=== PATIENT | female | born 1960 | race Caucasian/White ===

== ENCOUNTER 2018-07-09 09:19 | Outpatient (CLI) | payer MEDICARE, SELFPAY ==
[2018-07-09 09:56] LABS: HCT 44.1 % (36.0-46.0); HGB 14.1 g/dL (12.0-15.5); Mean Corpuscular Hemoglobin 30.8 pg (27.0-33.0); Mean Corpuscular Volume 96.3 fL (80-95); Mean Platelet Volume 10.4 fL (8.0-11.0); Platelet Count 209 x1000/uL (130-400); RBC 4.58 m/cumm (4.00-5.20); RBC Distribution Width 13.8 % (11.7-14.6)
[2018-07-09 10:15] LABS: Bilirubin Negative (Negative); Blood Negative (Negative); Clarity Clear; Glucose Negative (Negative); Ketones Negative (Negative); Leukocyte Esterase Negative (Negative); Nitrite Negative (Negative); Specific Gravity 1.015 (1.005-1.025); Urobilinogen 0.2 EU/dL (Up TO 0.2); pH 5.5 (5-8)
[2018-07-09 10:28] LABS: PROTEIN < 6.0 mg/dL
[2018-07-09 10:30] LABS: COMMENT (LAB VIEW ONLY) 52.21 mg/dL
[2018-07-09 10:58] LABS: ALT 24 U/L (12-78); AST 15 U/L (15-37); Albumin 3.5 g/dL (3.4-5.0); Alkaline Phosphatase 69 U/L (46-116); BUN 28 mg/dL (7-18); Bilirubin, Total 0.4 mg/dL (0.2-1.0); CREATININE 1.39 mg/dL (0.55-1.02); Calcium 8.9 mg/dL (8.5-10.1); Chloride 103 mmol/L (98-107); Estimated GFR 39.22 (mL/min/1.73m2); Glucose 96 mg/dL (70-100); Magnesium 1.6 mg/dL (1.8-2.4); PHOSPHORUS 2.9 mg/dL (2.6-4.7); Potassium 3.6 mmol/L (3.5-5.1); Sodium 142 mmol/L (136-145); Uric Acid 5.2 mg/dL (2.6-6.0)
[2018-07-09 11:14] LABS: Cholesterol 202 mg/dL (50-200)
[2018-07-10 13:42] LABS: Tacrolimus 12.2 ng/ml
== END 2018-07-09 09:39 ==
PROVIDERS: PCP Family Medicine; Visit Provider Internal Medicine Nephrology
DX: Z94.0 Kidney transplant status (principal); Z79.899 Other long term (current) drug therapy
CPT/HCPCS: 36415; 80053; 85027; 80197; 81003; 82465; 82565; 83735; 84100; 84156; 84550

== ENCOUNTER 2018-07-20 08:42 | Outpatient (CLI) | payer MEDICARE, SELFPAY ==
[2018-07-21 12:16] LABS: Tacrolimus 5.9 ng/ml
== END 2018-07-20 09:02 ==
PROVIDERS: PCP Family Medicine; Visit Provider Internal Medicine Nephrology
DX: Z94.0 Kidney transplant status (principal); Z79.899 Other long term (current) drug therapy
CPT/HCPCS: 36415; 80053; 85027; 80197; 81003; 82465; 82565; 83735; 84100; 84156; 84550

== ENCOUNTER 2018-10-01 08:39 | Outpatient (CLI) | payer MEDICARE, SELFPAY ==
[2018-10-01 09:10] LABS: HCT 40.9 % (36.0-46.0); HGB 13.3 g/dL (12.0-15.5); Mean Corp. HGB Concentration 32.5 g/dL (32.0-36.0); Mean Corpuscular Hemoglobin 30.4 pg (27.0-33.0); Mean Corpuscular Volume 93.6 fL (80-95); Mean Platelet Volume 10.2 fL (8.0-11.0); Platelet Count 192 x1000/uL (130-400); RBC 4.37 m/cumm (4.00-5.20); RBC Distribution Width 13.5 % (11.7-14.6); White Blood Cell Count 6.02 k/cumm (4.4-10.8)
[2018-10-01 09:11] LABS: Bilirubin Negative (Negative); Blood Negative (Negative); Clarity Clear; Glucose Negative (Negative); Ketones Negative (Negative); Leukocyte Esterase Trace (Negative); Nitrite Negative (Negative); Urobilinogen 0.2 EU/dL (Up TO 0.2); pH 5.5 (5-8)
[2018-10-01 09:42] LABS: Bacteria Few HPF (Negative); Crystals Negative HPF (Negative); Epithelial Cells Rare HPF (Negative); Other Cells Rare Renal (Negative); RBC 0-2 (0-2)
[2018-10-01 09:43] LABS: C & S Indicated? Yes; Casts Negative LPF (Negative); Mucus Negative (Negative)
[2018-10-01 09:56] LABS: COMMENT (LAB VIEW ONLY) 42.07 mg/dL
[2018-10-01 09:57] LABS: PROTEIN < 6.0 mg/dL
[2018-10-01 10:16] LABS: ALT 28 U/L (12-78); AST 19 U/L (15-37); Albumin 3.4 g/dL (3.4-5.0); Alkaline Phosphatase 77 U/L (46-116); Anion Gap 7.5 mmol/L (3-11); BUN 33 mg/dL (7-18); Bilirubin, Total 0.3 mg/dL (0.2-1.0); CO2 27.5 mmol/L (21.0-32.0); CREATININE 1.48 mg/dL (0.55-1.02); Calcium 9.5 mg/dL (8.5-10.1); Chloride 106 mmol/L (98-107); Estimated GFR 36.35 (mL/min/1.73m2); Glucose 85 mg/dL (70-100); Magnesium 1.6 mg/dL (1.8-2.4); PHOSPHORUS 4.1 mg/dL (2.6-4.7); Potassium 4.2 mmol/L (3.5-5.1); Sodium 141 mmol/L (136-145); Total Protein 5.8 g/dL (6.4-8.2); Uric Acid 5.9 mg/dL (2.6-6.0)
[2018-10-01 10:43] LABS: Cholesterol 164 mg/dL (50-200)
[2018-10-02 13:47] LABS: Tacrolimus 8.2 ng/ml
== END 2018-10-01 08:59 ==
PROVIDERS: PCP Family Medicine; Visit Provider Internal Medicine Nephrology
DX: Z94.0 Kidney transplant status (principal); Z79.899 Other long term (current) drug therapy
CPT/HCPCS: 36415; 80053; 85027; 80197; 81003; 81015; 82465; 82565; 83735; 84100; 84156; 84550; 87086

== ENCOUNTER 2019-01-09 07:48 | Outpatient (CLI) | payer MEDICARE, SELFPAY ==
[2019-01-09 08:17] LABS: Bilirubin Negative (Negative); Blood Negative (Negative); Clarity Clear; Glucose Negative (Negative); Ketones Negative (Negative); Leukocyte Esterase Small (Negative); Nitrite Negative (Negative); Urobilinogen 0.2 EU/dL (Up TO 0.2); pH 5.5 (5-8)
[2019-01-09 08:19] LABS: HCT 42.1 % (36.0-46.0); HGB 13.5 g/dL (12.0-15.5); Mean Corp. HGB Concentration 32.1 g/dL (32.0-36.0); Mean Corpuscular Hemoglobin 30.2 pg (27.0-33.0); Mean Corpuscular Volume 94.2 fL (80-95); Mean Platelet Volume 10.3 fL (8.0-11.0); Platelet Count 209 x1000/uL (130-400); RBC 4.47 m/cumm (4.00-5.20); RBC Distribution Width 13.7 % (11.7-14.6); White Blood Cell Count 6.17 k/cumm (4.4-10.8)
[2019-01-09 08:35] LABS: Epithelial Cells Few HPF (Negative); RBC 0-2 (0-2)
[2019-01-09 08:36] LABS: Bacteria Rare HPF (Negative); C & S Indicated? Yes; Casts Negative LPF (Negative); Crystals Negative HPF (Negative); Mucus Trace (Negative); Other Cells Few Renal (Negative)
[2019-01-09 09:29] LABS: PROTEIN 6.9 mg/dL
[2019-01-09 09:39] LABS: COMMENT (LAB VIEW ONLY) 87.74 mg/dL; Cholesterol 191 mg/dL (50-200); Prot/Crea Ur Ratio 0.07
[2019-01-09 09:40] LABS: ALT 27 U/L (12-78); AST 13 U/L (15-37); Albumin 3.4 g/dL (3.4-5.0); Alkaline Phosphatase 81 U/L (46-116); Anion Gap 10.6 mmol/L (3-11); BUN 35 mg/dL (7-18); Bilirubin, Total 0.4 mg/dL (0.2-1.0); CO2 27.4 mmol/L (21.0-32.0); CREATININE 1.74 mg/dL (0.55-1.02); Calcium 8.9 mg/dL (8.5-10.1); Chloride 104 mmol/L (98-107); Estimated GFR 30.16 (mL/min/1.73m2); Glucose 85 mg/dL (70-100); Magnesium 1.7 mg/dL (1.8-2.4); PHOSPHORUS 3.7 mg/dL (2.6-4.7); Potassium 3.9 mmol/L (3.5-5.1); Sodium 142 mmol/L (136-145); Total Protein 5.7 g/dL (6.4-8.2); Uric Acid 6.1 mg/dL (2.6-6.0)
[2019-01-10 12:49] LABS: Tacrolimus 7.8 ng/ml
== END 2019-01-09 08:08 ==
PROVIDERS: PCP Family Medicine; Visit Provider Internal Medicine Nephrology
DX: Z79.899 Other long term (current) drug therapy (principal); Z94.0 Kidney transplant status
CPT/HCPCS: 36415; 80053; 80197; 85027; 81003; 81015; 82465; 82565; 83735; 84100; 84156; 84550; 87086

== ENCOUNTER 2019-03-07 08:04 | Outpatient (CLI) | payer MEDICARE, SELFPAY ==
[2019-03-07 08:59] LABS: Bilirubin Negative (Negative); Blood Negative (Negative); Clarity Clear (Clear); Glucose Negative (Negative); Ketones Negative (Negative); Leukocyte Esterase Trace (Negative); Nitrite Negative (Negative); Specific Gravity <= 1.005 (1.005-1.025); Urobilinogen 0.2 EU/dL (Up TO 0.2)
[2019-03-07 09:04] LABS: HCT 40.7 % (36.0-46.0); HGB 13.2 g/dL (12.0-15.5); Mean Corp. HGB Concentration 32.4 g/dL (32.0-36.0); Mean Corpuscular Hemoglobin 30.1 pg (27.0-33.0); Mean Corpuscular Volume 92.9 fL (80-95); Mean Platelet Volume 10.5 fL (8.0-11.0); Platelet Count 206 x1000/uL (130-400); RBC 4.38 m/cumm (4.00-5.20); White Blood Cell Count 6.59 k/cumm (4.4-10.8)
[2019-03-07 09:15] LABS: Bacteria Few HPF (Negative); C & S Indicated? Yes; Casts Negative LPF (Negative); Crystals Rare Calcium Oxalate HPF (Negative); Epithelial Cells Rare HPF (Negative); Mucus Negative (Negative); Other Cells Rare Renal (Negative); RBC Negative (0-2); WBC 0-2 HPF (0-5)
[2019-03-07 10:05] LABS: PROTEIN < 6.0 mg/dL
[2019-03-07 10:07] LABS: ALT 35 U/L (12-78); AST 13 U/L (15-37); Albumin 3.4 g/dL (3.4-5.0); Alkaline Phosphatase 74 U/L (46-116); BUN 26 mg/dL (7-18); Bilirubin, Total 0.4 mg/dL (0.2-1.0); CREATININE 1.49 mg/dL (0.55-1.02); Calcium 9.1 mg/dL (8.5-10.1); Chloride 107 mmol/L (98-107); Estimated GFR 36.07 (mL/min/1.73m2); Glucose 93 mg/dL (70-100); Magnesium 1.7 mg/dL (1.8-2.4); PHOSPHORUS 3.7 mg/dL (2.6-4.7); Potassium 4.2 mmol/L (3.5-5.1); Sodium 144 mmol/L (136-145); Total Protein 5.9 g/dL (6.4-8.2); Uric Acid 5.7 mg/dL (2.6-6.0)
[2019-03-07 10:08] LABS: Cholesterol 185 mg/dL (50-200)
[2019-03-07 10:12] LABS: COMMENT (LAB VIEW ONLY) 35.54 mg/dL
[2019-03-08 13:16] LABS: Tacrolimus 7.6 ng/ml
== END 2019-03-07 08:24 ==
PROVIDERS: PCP Family Medicine; Visit Provider Internal Medicine Nephrology
DX: Z94.0 Kidney transplant status (principal); Z79.899 Other long term (current) drug therapy
CPT/HCPCS: 36415; 80053; 85027; 80197; 81003; 81015; 82465; 82565; 83735; 84100; 84156; 84550; 87086

== ENCOUNTER 2019-05-13 08:41 | Outpatient (CLI) | payer MEDICARE, SELFPAY ==
[2019-05-13 09:19] LABS: HCT 42.1 % (36.0-46.0); HGB 13.2 g/dL (12.0-15.5); Mean Corp. HGB Concentration 31.4 g/dL (32.0-36.0); Mean Corpuscular Hemoglobin 29.9 pg (27.0-33.0); Mean Corpuscular Volume 95.5 fL (80-95); Mean Platelet Volume 10.4 fL (8.0-11.0); Platelet Count 234 x1000/uL (130-400); RBC 4.41 m/cumm (4.00-5.20); White Blood Cell Count 6.74 k/cumm (4.4-10.8)
[2019-05-13 09:49] LABS: Bilirubin Negative (Negative); Blood Negative (Negative); Clarity Sl Cloudy (Clear); Glucose Negative (Negative); Ketones Negative (Negative); Leukocyte Esterase Moderate (Negative); Nitrite Negative (Negative); Specific Gravity 1.015 (1.005-1.025); Urobilinogen 0.2 EU/dL (Up TO 0.2)
[2019-05-13 09:59] LABS: Bacteria Few HPF (Negative); C & S Indicated? Yes; Casts Negative LPF (Negative); Crystals Negative HPF (Negative); Epithelial Cells Rare HPF (Negative); Mucus Negative (Negative); RBC 0-2 (0-2); WBC 20-50 HPF (0-5)
[2019-05-13 10:22] LABS: PROTEIN 8.5 mg/dL
[2019-05-13 10:23] LABS: Cholesterol 199 mg/dL (50-200)
[2019-05-13 10:25] LABS: ALT 35 U/L (14-59); AST 21 U/L (15-37); Albumin 3.4 g/dL (3.4-5.0); Alkaline Phosphatase 85 U/L (46-116); Anion Gap 8.9 mmol/L (3-11); BUN 19 mg/dL (7-18); Bilirubin, Total 0.5 mg/dL (0.2-1.0); CO2 29.1 mmol/L (21.0-32.0); CREATININE 1.47 mg/dL (0.55-1.02); Calcium 8.8 mg/dL (8.5-10.1); Chloride 106 mmol/L (98-107); Estimated GFR 36.64 (mL/min/1.73m2); Glucose 63 mg/dL (70-100); Magnesium 1.6 mg/dL (1.8-2.4); PHOSPHORUS 3.7 mg/dL (2.6-4.7); Potassium 4.2 mmol/L (3.5-5.1); Sodium 144 mmol/L (136-145); Total Protein 5.8 g/dL (6.4-8.2); Uric Acid 5.2 mg/dL (2.6-6.0)
[2019-05-13 10:37] LABS: COMMENT (LAB VIEW ONLY) 78.77 mg/dL
[2019-05-14 12:54] LABS: Tacrolimus 6.7 ng/ml
== END 2019-05-13 09:01 ==
PROVIDERS: PCP Family Medicine; Visit Provider Internal Medicine Nephrology
DX: Z94.0 Kidney transplant status (principal); Z79.899 Other long term (current) drug therapy
CPT/HCPCS: 36415; 80053; 85027; 87077; 80197; 81003; 81015; 82465; 82565; 83735; 84100; 84156; 84550; 87086; 87186

== ENCOUNTER 2019-08-05 08:41 | Outpatient (CLI) | payer MEDICARE, SELFPAY ==
[2019-08-05 09:42] LABS: HCT 40.7 % (36.0-46.0); HGB 13.1 g/dL (12.0-15.5); Mean Corp. HGB Concentration 32.2 g/dL (32.0-36.0); Mean Corpuscular Hemoglobin 30.3 pg (27.0-33.0); Mean Platelet Volume 10.1 fL (8.0-11.0); Platelet Count 195 x1000/uL (130-400); RBC 4.33 m/cumm (4.00-5.20); RBC Distribution Width 13.6 % (11.7-14.6); White Blood Cell Count 4.69 k/cumm (4.4-10.8)
[2019-08-05 09:47] LABS: ALT 27 U/L (14-59); AST 16 U/L (15-37); Albumin 3.3 g/dL (3.4-5.0); Alkaline Phosphatase 77 U/L (46-116); Anion Gap 10.1 mmol/L (3-11); BUN 18 mg/dL (7-18); Bilirubin, Total 0.5 mg/dL (0.2-1.0); CO2 25.9 mmol/L (21.0-32.0); CREATININE 1.26 mg/dL (0.55-1.02); Calcium 8.7 mg/dL (8.5-10.1); Chloride 104 mmol/L (98-107); Estimated GFR 43.77 (mL/min/1.73m2); Glucose 76 mg/dL (74-106); Magnesium 1.5 mg/dL (1.8-2.4); PHOSPHORUS 3.4 mg/dL (2.6-4.7); Potassium 4.1 mmol/L (3.5-5.1); Sodium 140 mmol/L (136-145); Total Protein 5.6 g/dL (6.4-8.2); Uric Acid 5.1 mg/dL (2.6-6.0)
[2019-08-05 09:48] LABS: Cholesterol 169 mg/dL (<200)
[2019-08-05 09:50] LABS: PROTEIN 10.7 mg/dL
[2019-08-05 09:51] LABS: COMMENT (LAB VIEW ONLY) 67.15 mg/dL; Prot/Crea Ur Ratio 0.15
[2019-08-05 09:57] LABS: Bilirubin Negative (Negative); Blood Trace-intact (Negative); Clarity Clear (Clear); Glucose Negative (Negative); Ketones Negative (Negative); Leukocyte Esterase Moderate (Negative); Nitrite Negative (Negative); Urobilinogen 0.2 EU/dL (Up TO 0.2)
[2019-08-05 10:10] LABS: WBC 20-50 HPF (0-5)
[2019-08-05 10:11] LABS: Bacteria Moderate HPF (Negative); C & S Indicated? Yes; Casts Negative LPF (Negative); Crystals Negative HPF (Negative); Epithelial Cells Few HPF (Negative); Mucus Negative (Negative); Other Cells Few Renal (Negative); RBC 0-2 HPF (0-2)
== END 2019-08-05 09:01 ==
PROVIDERS: PCP Family Medicine; Visit Provider Internal Medicine Nephrology
DX: Z94.0 Kidney transplant status (principal); Z79.899 Other long term (current) drug therapy
CPT/HCPCS: 36415; 80053; 80197; 85027; 87077; 81003; 81015; 82465; 82565; 83735; 84100; 84156; 84550; 87086; 87186

== ENCOUNTER 2020-01-13 01:27 | Outpatient (CLI) | payer MEDICARE, SELFPAY ==
[2020-01-13 08:54] LABS: Bilirubin Negative (Negative); Blood Negative (Negative); Clarity Clear (Clear); Glucose Negative (Negative); Ketones Negative (Negative); Leukocyte Esterase Small (Negative); Nitrite Negative (Negative); Urobilinogen 0.2 EU/dL (Up TO 0.2)
[2020-01-13 08:58] LABS: HCT 41.5 % (36.0-46.0); HGB 13.4 g/dL (12.0-15.5); Mean Corp. HGB Concentration 32.3 g/dL (32.0-36.0); Mean Corpuscular Hemoglobin 30.3 pg (27.0-33.0); Mean Corpuscular Volume 93.9 fL (80-95); Mean Platelet Volume 10.2 fL (8.0-11.0); Platelet Count 233 x1000/uL (130-400); RBC 4.42 m/cumm (4.00-5.20); RBC Distribution Width 13.7 % (11.7-14.6)
[2020-01-13 09:09] LABS: Bacteria Few HPF (Negative); C & S Indicated? Yes; Casts Negative LPF (Negative); Crystals Negative HPF (Negative); Epithelial Cells Rare HPF (Negative); Mucus Negative (Negative); Other Cells Rare Renal (Negative); RBC Negative HPF (0-2)
[2020-01-13 09:42] LABS: PROTEIN < 6.0 mg/dL
[2020-01-13 09:44] LABS: COMMENT (LAB VIEW ONLY) 34.33 mg/dL
[2020-01-13 09:46] LABS: Cholesterol 193 mg/dL (<200)
[2020-01-13 09:47] LABS: ALT 31 U/L (14-59); AST 19 U/L (15-37); Albumin 3.7 g/dL (3.4-5.0); Alkaline Phosphatase 77 U/L (46-116); Anion Gap 10.4 mmol/L (3-11); BUN 20 mg/dL (7-18); Bilirubin, Total 0.6 mg/dL (0.2-1.0); CO2 27.6 mmol/L (21.0-32.0); CREATININE 1.48 mg/dL (0.55-1.02); Calcium 9.1 mg/dL (8.5-10.1); Chloride 103 mmol/L (98-107); Estimated GFR 36.22 (mL/min/1.73m2); Glucose 84 mg/dL (74-106); Magnesium 1.6 mg/dL (1.8-2.4); PHOSPHORUS 3.8 mg/dL (2.6-4.7); Potassium 4.1 mmol/L (3.5-5.1); Sodium 141 mmol/L (136-145); Total Protein 5.8 g/dL (6.4-8.2)
[2020-01-16 08:54] LABS: Tacrolimus (DHMC) 5.4 ng/ml
== END 2020-01-13 01:47 ==
PROVIDERS: PCP Family Medicine; Visit Provider Internal Medicine Nephrology
DX: Z94.0 Kidney transplant status (principal); Z79.899 Other long term (current) drug therapy
CPT/HCPCS: 36415; 80053; 80197; 85027; 81003; 81015; 82465; 82565; 83735; 84100; 84156; 84550; 87086

== ENCOUNTER 2020-05-06 15:41 | Outpatient (REF) | payer MEDICARE, SELFPAY ==
--- NOTE | 2020-05-06 14:00 | PAPFT_PTH ---
PATIENT: Cherrie Miles LOC: [facility]#:[id number] AGE/SX: 59/F ROOM: RE05/06/[address]: Evelia Ramos : 1960 BED: DIS: 05/06/2020 SPEC #: [id number] RECD: 05/07/20 12:52 STATUS: ANN REQ #: [id number] SILAS: 05/06/20 14:[address]: Evelia Ramos DEPT: [facility] Cytology RECD BY: Queenie Beatty Tissues: 1 - CX/ENDOCX FOR PAP SMEARS Procedures: PAP THIN PREP/UVM Screening HPV DNA PROBE Comments: [id number]
== END 2020-05-06 16:01 ==
LOC: NCHCN 15:41
PROVIDERS: PCP Family Medicine; Visit Provider Family Medicine
DX: Z12.4 Encounter for screening for malignant neoplasm of cervix (principal); Z00.00 Encounter for general adult medical examination without abnormal findings; Z11.51 Encounter for screening for human papillomavirus (HPV)
CPT/HCPCS: 88142; 87624

== ENCOUNTER 2020-05-28 00:39 | Outpatient (CLI) | payer MEDICARE, SELFPAY ==
--- NOTE | 2020-05-28 14:44 | DI.MAMMO_ITS ---
EXAM: MG MAMMO SCREENING CLINICAL HISTORY: SCREENING,Z12.39 TECHNIQUE: Bilateral full field digital CC and MLO mammographic images were obtained with 3D tomosyn thesis and utilizing computer aided detection (CAD). COMPARISON: Available for comparison. FINDINGS: Masses/Architectural Distortion: None seen. Microcalcifications: No suspicious pleomorphic-type are seen. Skin Thickening/Nipple Retraction: None. IMPRESSION: 1. No significant interval change with no specific features of malignancy noted. 2. Unless there is more urgent need, screening mammography is recommended, as per [employer] guidelines. BI-RADS Category 1 - Negative Breast Density - Category B - Scattered areas of fibroglandular density A negative radiographic report should not delay biopsy if a dominant or clinically suspicious mass is present. Up to ten percent of cancers are not identified on mammography. A negative report may reinforce clinical impression. Adenosis and dense breasts may obscure an underlying neoplasm. False positive reports average 6 to 10%. Patient will receive a letter notifying them of these results.
== END 2020-05-28 00:59 ==
PROVIDERS: PCP Family Medicine; Visit Provider Family Medicine
DX: Z12.31 Encounter for screening mammogram for malignant neoplasm of breast (principal)
CPT/HCPCS: 77063; 77067

== ENCOUNTER 2020-06-10 00:59 | Outpatient (CLI) | payer MEDICARE, SELFPAY ==
--- NOTE | 2020-06-10 | DI.DEXA_ITS ---
EXAM: XR DEXA BONE DENSITY W/WO LEROY CLINICAL HISTORY: SCREENING FOR OSTEOPOROSIS IN POSTMENOPAUSAL WOMAN,Z78.0 TECHNIQUE: COMPARISON: No exams were available for comparison FINDINGS: Lateral Spine Image: Unremarkable. No compression deformities identified. Left hip: Total T-Score: -0.8 Total Z-Score: 0.1 T- and Z-scores: Within normal limits. Lumbar Spine: Total T-Score: -0.8 Total Z-Score: 0.5 T- and Z-scores: Within normal limits. IMPRESSION: No evidence of osteoporosis.
== END 2020-06-10 01:19 ==
PROVIDERS: PCP Family Medicine; Visit Provider Family Medicine
DX: Z78.0 Asymptomatic menopausal state (principal)
CPT/HCPCS: 77080

== ENCOUNTER 2020-07-10 03:40 | Outpatient (CLI) | payer MEDICARE, SELFPAY ==
[2020-07-10 08:24] LABS: HGB 12.9 g/dL (11.2-15.7); MCH 30.6 pg (27.0-33.0); MCHC 32.3 % (32.0-36.0); MPV 10.4 fL (8.0-11.0); Platelet Count 233 10^3/uL (130-400); RBC 4.21 10^6/uL (3.93-5.22); RDW-SD 45.6 fL; WBC 7.12 10^3/uL (4.4-10.8)
[2020-07-10 08:27] LABS: Bilirubin Negative (Negative); Blood Negative (Negative); Clarity Clear (Clear); Glucose Negative (Negative); Ketones Negative (Negative); Leukocyte Esterase Trace (Negative); Nitrite Negative (Negative); Specific Gravity 1.015 (1.005-1.025); Urobilinogen 0.2 EU/dL (Up TO 0.2); pH 5.5 (5-8)
[2020-07-10 08:37] LABS: Epithelial Cells Few HPF (Negative); RBC Negative HPF (0-2)
[2020-07-10 08:38] LABS: Bacteria Few HPF (Negative); C & S Indicated? Yes; Casts Negative LPF (Negative); Crystals Negative HPF (Negative); Mucus Trace (Negative); Other Cells Few Transitional (Negative)
[2020-07-10 09:15] LABS: Cholesterol 186 mg/dL (<200); PROTEIN 6.5 mg/dL
[2020-07-10 09:16] LABS: ALT 25 U/L (14-59); AST 16 U/L (15-37); Albumin 3.5 g/dL (3.4-5.0); Alkaline Phosphatase 85 U/L (46-116); Anion Gap 10.1 mmol/L (3-11); BUN 18 mg/dL (7-18); Bilirubin, Total 0.5 mg/dL (0.2-1.0); CO2 24.9 mmol/L (21.0-32.0); CREATININE 1.52 mg/dL (0.55-1.02); Calcium 8.6 mg/dL (8.5-10.1); Chloride 105 mmol/L (98-107); Estimated GFR 35.13 (mL/min/1.73m2); Glucose 91 mg/dL (74-106); Magnesium 1.5 mg/dL (1.8-2.4); PHOSPHORUS 3.5 mg/dL (2.6-4.7); Potassium 3.8 mmol/L (3.5-5.1); Sodium 140 mmol/L (136-145); Total Protein 5.7 g/dL (6.4-8.2); Uric Acid 5.3 mg/dL (2.6-6.0)
[2020-07-10 09:17] LABS: COMMENT (LAB VIEW ONLY) 58.17 mg/dL; Prot/Crea Ur Ratio 0.11
[2020-07-11 12:35] LABS: Tacrolimus 6.8 ng/mL (See Note)
== END 2020-07-10 04:00 ==
PROVIDERS: PCP Family Medicine; Visit Provider Internal Medicine Nephrology
DX: Z94.0 Kidney transplant status (principal); Z79.899 Other long term (current) drug therapy; Z51.81 Encounter for therapeutic drug level monitoring
CPT/HCPCS: 36415; 80053; 85027; 80197; 81003; 81015; 82465; 82565; 83735; 84100; 84156; 84550; 87086

== ENCOUNTER → 2020-09-25 08:00 | Outpatient (BNVA) | payer MEDICARE, SELFPAY | PROVIDERS: PCP Family Medicine; Referring Provider Family Medicine; Visit Provider Physical Therapy Assistant | DX: Z12.11 Encounter for screening for malignant neoplasm of colon (principal); Z86.010 Personal history of colon polyps ==

== ENCOUNTER 2020-10-21 03:28 | Outpatient (CLI) | payer MEDICARE, SELFPAY ==
[2020-10-21 07:45] LABS: Bilirubin Negative (Negative); Blood Negative (Negative); Clarity Clear (Clear); Glucose Negative (Negative); Ketones Trace mg/dL (Negative); Leukocyte Esterase Negative (Negative); Nitrite Negative (Negative); Specific Gravity 1.025 (1.005-1.025); Urobilinogen 0.2 EU/dL (Up TO 0.2)
[2020-10-21 08:25] LABS: PROTEIN 26.3 mg/dL
[2020-10-21 08:30] LABS: COMMENT (LAB VIEW ONLY) 225.49 mg/dL; Prot/Crea Ur Ratio 0.11
[2020-10-21 08:36] LABS: HCT 41.2 % (36.0-46.0); HGB 13.3 g/dL (11.2-15.7); MCH 30.2 pg (27.0-33.0); MCHC 32.3 % (32.0-36.0); MCV 93.6 fL (80-95); MPV 10.6 fL (8.0-11.0); Platelet Count 159 10^3/uL (130-400); RDW 13.3 % (11.7-14.6); RDW-SD 45.9 fL; WBC 2.87 10^3/uL (4.4-10.8)
[2020-10-21 08:51] LABS: Cholesterol 160 mg/dL (<200)
[2020-10-21 08:55] LABS: ALT 31 U/L (14-59); AST 20 U/L (15-37); Albumin 3.5 g/dL (3.4-5.0); Alkaline Phosphatase 74 U/L (46-116); Anion Gap 8.7 mmol/L (3-11); BUN 21 mg/dL (7-18); Bilirubin, Total 0.4 mg/dL (0.2-1.0); CO2 26.3 mmol/L (21.0-32.0); CREATININE 1.6 mg/dL (0.55-1.02); Calcium 8.5 mg/dL (8.5-10.1); Chloride 107 mmol/L (98-107); Estimated GFR 32.99 (mL/min/1.73m2); Glucose 91 mg/dL (74-106); Magnesium 1.4 mg/dL (1.8-2.4); Potassium 4.1 mmol/L (3.5-5.1); Sodium 142 mmol/L (136-145)
[2020-10-21 09:08] LABS: PHOSPHORUS 2.8 mg/dL (2.6-4.7); Uric Acid 6.1 mg/dL (2.6-6.0)
[2020-10-22 13:06] LABS: Tacrolimus 8.5 ng/mL (See Note)
== END 2020-10-21 03:29 | disposition home or self-care (01) ==
LOC: LBO 03:29
PROVIDERS: PCP Family Medicine; Visit Provider Internal Medicine Nephrology
DX: Z94.0 Kidney transplant status (principal); Z79.899 Other long term (current) drug therapy
CPT/HCPCS: 36415; 80053; 85027; 80197; 81003; 82465; 82565; 83735; 84100; 84156; 84550

== ENCOUNTER 2021-01-11 17:30 | Emergency (ER) | payer MEDICARE, SELFPAY ==
--- NOTE | 2021-01-11 | DI.CT_ITS ---
Exam(s) CT HEAD WO EXAM: CT HEAD WO CLINICAL HISTORY: HEADACHE. TECHNIQUE: Imaging Protocol: Axial computed tomography images with coronal and sagittal reformatted images were created and reviewed COMPARISON: No exams were available for comparison FINDINGS: The ventricular system is normal in appearance. No evidence of acute intracranial hemorrhage, mass effect, or midline shift. The orbital structures are unremarkable. The temporal bone structures appear intact. Calvarium: Normal. Visualized mastoid air cells are clear. There is mucoperiosteal thickening maxillary, ethmoid, sphen oid, and frontal sinuses, most marked involving right maxillary antrum, consistent with chronic sinus itis. IMPRESSION: No evidence of acute intracranial process. Presumed mild chronic pansinusitis. RADIATION DOSE DELIVERED: 738.71mGy.cm Total DLP 738.71mGy.cm Total DLP DATA REPOSITORY: All CT scans at this facility are submitted to the National Radiology Data Registry (NRDR) Dose Index Registry (DIR) with the [employer] ([employer]). RADIATION OPTIMIZATION: All CT scans at this facility use at least one of these dose optimization te chniques: automated exposure control; mA and/or kV adjustment per patient size (includes targeted exa ms where dose is matched to clinical indication); or iterative reconstruction.
[2021-01-11 17:42] VITALS: BP 136/97; PULSE 66; RESP 16; TEMP 36.6; O2SAT 98
--- NOTE | 2021-01-11 17:45 | RT.EKG_ITS ---
APPROVED REPORT Exam: Resting ECG Reason for Exam: dizziness Patient Location: E HR:60 bpm ECG Measurements Heart Rate 60 AXIS WI 156 P 38 QRSd 99 QRS -35 QT 414 T 16 QTc 415 Conclusion Sinus rhythm...normal P axis, V-rate 60- 99 Left axis deviation...QRS axis (-30,-90) Physician: no stemi, unchanged from 2018
--- NOTE | 2021-01-11 18:00 | DI.RAD_ITS ---
Exam(s) XR CHEST 2V PA LATERAL EXAM: XR CHEST 2V PA LATERAL CLINICAL HISTORY: weakness TECHNIQUE: 2D digital imaging was performed. COMPARISON: CR CHEST 2 VIEWS PA,LAT from 01/18/2018 FINDINGS: Previously noted vascular stent seen overlying left clavicle. The heart is not enlarged. The lungs are clear and well expanded. No pleural effusion seen. Mediastin al contours appear intact. IMPRESSION: No evidence of acute process.. RADIATION DOSE DELIVERED: Total DLP
[2021-01-11] MEDS: Lactated Ringers 1,000 ML 1000 ML IV (18:30)
[2021-01-11 18:39] LABS: Abs Immature Grans 0.04 10^3/uL (0.0-0.06); Absolute Basophil Count 0.03 10^3/uL (0.0-0.2); Absolute Lymphocyte Count 0.57 10^3/uL (1.2-3.4); Absolute Monocyte Count 0.58 10^3/uL (0.1-0.8); Absolute Neutrophil Count 6.63 10^3/uL (1.2-6.7); Basophils % 0.4; Eosinophils % 1.3; HCT 36.9 % (36.0-46.0); HGB 12.4 g/dL (11.2-15.7); Immature Grans % 0.5; Lymphocytes % 7.2; MCH 31.1 pg (27.0-33.0); MCHC 33.6 % (32.0-36.0); MCV 92.5 fL (80-95); MPV 10.2 fL (8.0-11.0); Monocytes % 7.3; Neutrophils % 83.3; Nucleated RBC 0 %; Platelet Count 207 10^3/uL (130-400); RBC 3.99 10^6/uL (3.93-5.22); RDW 13.3 % (11.7-14.6); RDW-SD 45.4 fL; WBC 7.95 10^3/uL (4.4-10.8)
[2021-01-11] MEDS: Ondansetron 4 MG/2 ML VIAL IVP (19:07)
[2021-01-11] MEDS: Acetaminophen 325 MG TAB PO (19:09)
[2021-01-11 19:12] LABS: Bilirubin Negative (Negative); Blood Negative (Negative); Clarity Clear (Clear); Glucose Negative (Negative); Ketones Trace mg/dL (Negative); Leukocyte Esterase Negative (Negative); Nitrite Negative (Negative); Specific Gravity 1.025 (1.005-1.025); Urobilinogen 0.2 EU/dL (Up TO 0.2)
--- NOTE | 2021-01-11 19:48 | DI.VRAD_ITS ---
PROCEDURE INFORMATION: Exam: CT Head Without Contrast Exam date and time: 01/11/2021 7:27 PM Age: 60 years old Clinical indication: Pain; Headache TECHNIQUE: Imaging protocol: Computed tomography of the head without contrast. COMPARISON: CT HEAD WO 01/11/2021 6:55 PM FINDINGS: Brain: Normal. Unremarkable white matter. No hemorrhage. No mass effect. Cerebral ventricles: No ventriculomegaly. Paranasal sinuses: There is stable near complete mucosal opacification of the right maxillary sinus and right ethmoid air cells. There is stable mucoperiosteal thickening of the left maxillary sinus and the left ethmoid air cells. Mastoid air cells: Visualized mastoid air cells are well aerated. Bones/joints: Unremarkable. No acute fracture. Soft tissues: Unremarkable. IMPRESSION: 1. No evidence for acute intracranial abnormality. 2. Stable sinus disease. Dictated and Authenticated by: Juan Alfaro MD. Ordering:DESIRAE Jerome MD
--- NOTE | 2021-01-11 19:49 | DI.VRAD_ITS ---
PROCEDURE INFORMATION: Exam: XR Chest Exam date and time: 01/11/2021 6:16 PM Age: 60 years old Clinical indication: Other: Weakness TECHNIQUE: Imaging protocol: XR of the chest. Views: 2 views. COMPARISON: CR CHEST 2 VIEWS PA,LAT 01/18/2018 3:28 PM FINDINGS: Lungs: No mass. No consolidation. Pleural spaces: Unremarkable. No pleural effusion. No pneumothorax. Heart/Mediastinum: Unremarkable cardiomediastinal silhouette. No cardiomegaly. Bones/joints: Unremarkable. IMPRESSION: No evidence for acute cardiopulmonary disease. Dictated and Authenticated by: Juan Alfaro MD. Ordering:DESIRAE Jerome MD
[2021-01-11 20:02] LABS: ALT 34 U/L (14-59); AST 24 U/L (15-37); Albumin 3.4 g/dL (3.4-5.0); Alkaline Phosphatase 78 U/L (46-116); Anion Gap 12.8 mmol/L (3-11); BUN 26 mg/dL (7-18); Bilirubin, Total 0.6 mg/dL (0.2-1.0); CO2 22.2 mmol/L (21.0-32.0); CREATININE 1.5 mg/dL (0.55-1.02); Calcium 8.8 mg/dL (8.5-10.1); Chloride 102 mmol/L (98-107); Estimated GFR 35.54 (mL/min/1.73m2); Glucose 92 mg/dL (74-106); Magnesium 1.6 mg/dL (1.8-2.4); Potassium 3.5 mmol/L (3.5-5.1); Sodium 137 mmol/L (136-145); TSH 0.31 uIU/mL (0.36-3.74)
[2021-01-11 20:04] LABS: Troponin I < 0.05 ng/mL (<0.06)
[2021-01-11 20:13] LABS: C-Reactive Protein 1.31 mg/dL (0.0-0.3)
[2021-01-11 21:00] VITALS: BP 128/72; PULSE 62; RESP 16; O2SAT 98
--- NOTE | 2021-01-11 21:01 | ED.GENADUL_ITS ---
Discharge Plan Disposition Patient Disposition: HOME Condition: Good Discharge Details Clinical Impression: Light-headedness Primary Care Provider: Evelia Ramos ED Provider: Queenie Ugalde Home Meds and New Rx's Prescriptions: New ondansetron HCl [Zofran] 4 mg tablet 4 mg PO Q8H PRNQty: 7 RF: 0 No Action prednisone 20 MG tablet 7.5 mg PO DAILY RF: 0 losartan 50 MG tablet 50 mg PO HS RF: 0 mycophenolate mofetil [CellCept] 250 MG capsule 1 - 2 cap PO DIRECTED RF: 0 calcitriol 0.5 MCG capsule 0.5 mcg PO DAILY RF: 0 tacrolimus [Prograf] 1 MG capsule 3 - 4 mg PO DIRECTED RF: 0 esomeprazole magnesium [Nexium] 40 MG capsule,delayed release(DR/EC) 40 mg PO HS RF: 0 magnesium gluconate 500 MG tablet 500 mg PO BID RF: 0 Discharge Instructions Additional Instructions: Please follow-up with your primary care physician tomorrow Stay hydrated Take Zofran as needed for nausea and vomiting You have been given additional dose for tonight Please return earlier should you have new or worsening complaints Recommend 24 to 48-hour recheck Medical Decision Making Patient is alert, oriented, of decisional capacity She is quite pleasant, she has a negative CT scan, I did recommend CTA head and neck, patient has declined, she actually adamantly refuses to have IV contrast She is aware that she is at increased risk for arterial and venous abnormalities with her history Otherwise she is feeling much improved after normal saline and Zofran administration She is ambulatory with steady gait Her CT scan does show evidence of chronic sinusitis, this was discussed with patient she will follow-up regarding this with her ENT doctor She has no leukocytosis and her labs all are are stable appearing for her She has a creatinine of 1.5, when compared to prior, this is her baseline Her chest x-ray does not show evidence of infectious etiology of symptoms or any other acute abnormality per radiology interpretation in my review EKG does not show acute abnormality Troponin is negative with greater than 24 hours of symptoms which is reassuring Tacrolimus level is pending She will supplement her magnesium at home, 1.6 She will call her transplant team tomorrow she discussed her symptoms If her symptoms persist, I did discuss performing MRI/MRA, and we are unable to do that this evening and we discussed risk benefits of waiting until tomorrow to check with her doctor, she has declined being transferred at this time We talked about lumbar puncture although my suspicion for subarachnoid hemorrhage is quite low given her presentation She has a disc find additional intervention at this time and feels comfortable discharge home, she is feeling symptomatically improved, ambulatory with steady gait and stable condition Differential Diagnosis Differential Diagnosis: Carotid dissection, renal failure, electrolyte abnormality, urinary tract i Medical Records Medical records reviewed: Yes I reviewed the patient's medical records. Lab Data Lab results reviewed: Yes I reviewed the patient's lab results. ECG Data Attestation: I personally reviewed and interpreted this ECG (s) as follows: HPI General Mode of arrival: ambulatory . Date/Time Provider Initiated Documentation: 01/11/21 17:56 . Limitations to Documentation: no limitations . Information obtained by: patient . 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 She states that she feels similarly to how she felt in the past with a caffeine headache . States she has not had caffeine in years secondary to being symptomatic with it. She states she has had the symptoms for several days. She was initially considering sinusitis but she does have reported chronic sinusitis and is managed by ENT at [facility]. She denies any vision change. She denies any temporal pain. She denies any ocular pressure. She states her symptoms occasionally are worse when she goes from sitting to standing. She denies any fever or chills. She denies stiff neck. She denies any strength or sensation change. There has been no reported confusion or speech change. She was nauseous with afternoon around 3 and 2 episodes of vomiting without blood. She denies any new medications. She is followed by [facility] and have labs rechecked in November. She does take tacrolimus and CellCept. She denies any changes in these medications. She also takes prednisone. She denies any urinary complaints. She denies any elías tophobia or phonophobia. She denies known carbon monoxide exposure. Denies new shortness of breath or chest pain. Denies exogenous hormones. Related Data Home Medications Medication Instructions Recorded Confirmed prednisone 7.5 mg PO DAILY 03/06/14 01/11/21 losartan 50 mg PO HS 10/23/14 01/11/21 calcitriol 0.5 mcg PO DAILY 11/24/17 01/11/21 esomeprazole magnesium [Nexium] 40 mg PO HS 11/24/17 09/25/20 magnesium gluconate 500 mg PO BID 11/24/17 01/11/21 mycophenolate mofetil [CellCept] 1 - 2 cap PO DIRECTED 11/24/17 01/11/21 tacrolimus [Prograf] 3 - 4 mg PO DIRECTED 11/24/17 01/11/21 ondansetron HCl [Zofran] 4 mg PO Q8H PRN #7 tab 01/11/21 Previous Rx's Medication Instructions Recorded ondansetron HCl [Zofran] 4 mg PO Q8H PRN #7 tab 01/11/21 Allergies Allergy/AdvReac Type Severity Reaction Status Date / Time Sulfa (Sulfonamide Allergy Hives Unverified 01/11/21 17:51 Antibiotics) General Stated Complaint: Dizzy/Sync DIRK: 3 Review of Systems Narrative: Review of systems obtained x7 aside from where indicated in HPI [facility] Medical History (Updated 01/11/21 @ 21:03 by JAYRO Hawthorne) Chronic sinusitis History of adenomatous polyp of colon History of immunosuppressive therapy 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 moving towards renal transplant Surgical History (Updated 09/21/20 @ 09:42 by Patricia Aguilar RN) Transplanted kidney Family History Mother Personal history of malignant neoplasm ovarian CA Social History Smoking/Tobacco Use Status: Former Tobacco Use Smoking risk assessment performed?: Yes Drug use: Never Do you feel safe at home: Yes Do you feel safe in your relationship?: Yes Exam Const General: cooperative and comfortable Orientation: awake and oriented x3 HENMT Head: normal to inspection Other: Mild frontal tenderness Eyes Pupils: PERRL EOM: EOM intact bilaterally Neck Other: No carotid bruit, no meningismus Resp Effort & Inspection: normal respiratory effort Auscultation: clear to auscultation bilaterally Cardio Rate: regular rate Rhythm: regular rhythm Skin General skin exam: no rashes or lesions noted Neuro General: patient alert and patient oriented x3 Cranial Nerves: CN's II-XI intact bilaterally Speech: speech normal Gait: normal gait Motor: strength 5/5 throughout Sensory Exam: no sensory deficits noted Other: Negative [id number], negative heel piper you remember the Extrem Other: No calf tenderness or swelling she clindamycin and with no acute Course Vital Signs Vital signs: Vital Signs Temperature 36.6 C 01/11/21 17:42 Pulse 66 01/11/21 17:42 Respiratory Rate 16 01/11/21 17:42 Blood Pressure 136/97 H 01/11/21 17:42 Pulse Oximetry 98 01/11/21 17:42 Temperature 36.6 C 01/11/21 17:42 Temperature Source Skin 01/11/21 17:42 Pulse 66 01/11/21 17:42 Respiratory Rate 16 01/11/21 17:42 Respiratory Effort Non-Labored 01/11/21 19:33 Blood Pressure 136/97 H 01/11/21 17:42 Blood Pressure Position Sitting 01/11/21 17:42 Pulse Oximetry 98 01/11/21 17:42 Oxygen Delivery Method Room Air 01/11/21 17:42 Oxygen Flow Rate 0 01/11/21 17:42 Pain Level 3 01/11/21 19:56 Lab/Test Results Lab/Test Results: Laboratory Tests Range/Units 01/11/21 01/11/21 01/11/21 18:10 18:20 18:30 WBC (4.4-10.8) 10^3/uL 7.95 RBC (3.93-5.22) 10^6/uL 3.99 Hgb (11.2-15.7) g/dL 12.4 Hct (36.0-46.0) % 36.9 MCV (80-95) fL 92.5 MCH (27.0-33.0) pg 31.1 MCHC (32.0-36.0) % 33.6 RDW (11.7-14.6) % 13.3 Plt Count (130-400) 10^3/uL 207 MPV (8.0-11.0) fL 10.2 Immature Gran % 0.5 Neutrophils % 83.3 Lymphocytes % 7.2 Monocytes % 7.3 Eosinophils % 1.3 Basophils % 0.4 Nucleated RBC % % 0 Absolute Neutrophils (1.2-6.7) 10^3/uL 6.63 Absolute Lymphocytes (1.2-3.4) 10^3/uL 0.57 L Absolute Monocytes (0.1-0.8) 10^3/uL 0.58 Absolute Eosinophils (0.0-0.7) 10^3/uL 0.10 Absolute Basophils (0.0-0.2) 10^3/uL 0.03 Sodium Potassium Chloride Carbon Dioxide Anion Gap BUN Creatinine Estimated GFR/1.73 m2 Glucose Calcium Magnesium Cancelled Total Bilirubin AST ALT Alkaline Phosphatase Troponin I Cancelled C-Reactive Protein Cancelled Total Protein Albumin TSH Cancelled Urine Color (Yellow) Yellow Urine Clarity (Clear) Clear Urine pH (5-8) 6.0 Ur Specific [place] (1.005-1.025) 1.025 Urine Protein (Negative) mg/dL Negative Urine Ketones (Negative) mg/dL Trace H Urine Blood (Negative) Negative Urine Nitrite (Negative) Negative Urine Bilirubin (Negative) Negative Urine Urobilinogen (Up TO 0.2) EU/dL 0.2 Ur Leukocyte Esterase (Negative) Negative Urine Glucose (Negative) mg/dL Negative Range/Units 01/11/21 01/11/21 01/11/21 18:30 19:17 21:10 WBC (4.4-10.8) 10^3/uL RBC (3.93-5.22) 10^6/uL Hgb (11.2-15.7) g/dL Hct (36.0-46.0) % MCV (80-95) fL MCH (27.0-33.0) pg MCHC (32.0-36.0) % RDW (11.7-14.6) % Plt Count (130-400) 10^3/uL MPV (8.0-11.0) fL Immature Gran % Neutrophils % Lymphocytes % Monocytes % Eosinophils % Basophils % Nucleated RBC % % Absolute Neutrophils (1.2-6.7) 10^3/uL Absolute Lymphocytes (1.2-3.4) 10^3/uL Absolute Monocytes (0.1-0.8) 10^3/uL Absolute Eosinophils (0.0-0.7) 10^3/uL Absolute Basophils (0.0-0.2) 10^3/uL Sodium Cancelled 137 Potassium Cancelled 3.5 Chloride Cancelled 102 Carbon Dioxide Cancelled 22.2 Anion Gap Cancelled 12.8 H BUN Cancelled 26 H Creatinine Cancelled 1.5 H Estimated GFR/1.73 m2 Cancelled 35.54 Glucose Cancelled 92 Calcium Cancelled 8.8 Magnesium 1.6 L Total Bilirubin Cancelled 0.6 AST Cancelled 24 ALT Cancelled 34 Alkaline Phosphatase Cancelled 78 Troponin I < 0.05 Cancelled C-Reactive Protein 1.31 H Total Protein Cancelled 6.0 L Albumin Cancelled 3.4 TSH 0.31 L Urine Color (Yellow) Urine Clarity (Clear) Urine pH (5-8) Ur Specific [place] (1.005-1.025) Urine Protein (Negative) mg/dL Urine Ketones (Negative) mg/dL Urine Blood (Negative) Urine Nitrite (Negative) Urine Bilirubin (Negative) Urine Urobilinogen (Up TO 0.2) EU/dL Ur Leukocyte Esterase (Negative) Urine Glucose (Negative) mg/dL
[2021-01-11] MEDS: Ondansetron O.D.T. 4 MG TABEF, 3 TABS/BTL PO (21:19)
[2021-01-13 16:07] LABS: Tacrolimus (DHMC) 7.8 ng/ml
== END 2021-01-11 21:15 | disposition home or self-care (01) ==
PROVIDERS: Emergency Provider Physician Assistant; PCP Family Medicine
DX: R42 Dizziness and giddiness (principal); N18.6 End stage renal disease; Z99.2 Dependence on renal dialysis
CPT/HCPCS: 36415; 80053; 80197; 93005; 96361; 96374; 99285; 70450; 71046; 81003; 83735; 84443; 84484; 85025; 86140; 93010; 99283; J2405

== ENCOUNTER 2021-05-21 16:02 | Outpatient (REF) | payer MEDICARE, SELFPAY ==
--- NOTE | 2021-05-21 14:00 | PAPFT_PTH ---
PATIENT: Cherrie Miles LOC: [facility]#:[id number] AGE/SX: 60/F ROOM: RE05/21/[address]: Evelia Ramos : 1960 BED: DIS: 05/21/2021 SPEC #: [id number] RECD: 05/24/21 12:46 STATUS: ANN REQ #: [id number] SILAS: 05/21/21 14:[address]: Evelia Ramos DEPT: [facility] Cytology RECD BY: Queenie Beatty Tissues: 1 - CX/ENDOCX FOR PAP SMEARS Procedures: PAP THIN PREP/UVM Screening HPV DNA PROBE Comments: [id number]
== END 2021-05-21 16:03 | disposition home or self-care (01) ==
LOC: NCHCN 16:02
PROVIDERS: PCP Family Medicine; Visit Provider Family Medicine
DX: Z12.4 Encounter for screening for malignant neoplasm of cervix (principal); Z11.51 Encounter for screening for human papillomavirus (HPV); Z01.419 Encounter for gynecological examination (general) (routine) without abnormal findings
CPT/HCPCS: 88142; 87624

== ENCOUNTER → 2021-06-10 08:41 | Outpatient (BNVA) | payer MEDICARE, SELFPAY | PROVIDERS: PCP Family Medicine; Referring Provider Family Medicine; Visit Provider Physical Therapy Assistant | DX: R69 Illness, unspecified (principal) ==

== ENCOUNTER 2021-07-21 00:11 | Outpatient (CLI) | payer MEDICARE, SELFPAY ==
--- NOTE | 2021-07-21 08:58 | DI.MAMMO_ITS ---
Exam(s) MAMMO SCREENING EXAM: MAMMO SCREENING CLINICAL HISTORY: SCREENING FOR BREAST CANCER Z12.39. TECHNIQUE: Bilateral full field digital CC and MLO mammographic images were obtained with 3D tomosyn thesis and utilizing computer aided detection (CAD). COMPARISON: Prior mammograms dating back to 2014, the most recent being May 2020. FINDINGS: There has been no significant change in the appearance and distribution of the fibroglandular tissue. There are no new spiculated masses nor malignant appearing microcalcification groups. There is no significant architectural distortion nor skin thickening-retraction. IMPRESSION: No radiographic evidence of malignancy. BI-RADS Category 1 - Negative Breast Density - Category B - Scattered areas of fibroglandular density Breast density Category C or D implies that the patient has dense breast tissue. Dense breast tissue can make it harder to find cancer on a mammogram. Dense breast tissue is also associated with an incr eased risk of breast cancer. This information about the result of the mammogram report was provided to the patient to raise their awareness. Use this report when you speak with the patient about their risks for breast cancer, which includes their family history. At that time, you may recommend additional screening tests (Ultrasoun d or MRI) as these tests may add significant information. A negative radiographic report should not delay biopsy if a dominant or clinically suspicious mass is present. Up to ten percent of cancers are not identified on mammography. A negative report may reinforce clinical impression. Adenosis and dense breasts may obscure an underlying neoplasm. False positive reports average 6 to 10%. Patient will receive a letter notifying them of these results.
== END 2021-07-21 00:31 ==
PROVIDERS: PCP Family Medicine; Visit Provider Family Medicine
DX: Z12.31 Encounter for screening mammogram for malignant neoplasm of breast (principal)
CPT/HCPCS: 77063; 77067

== ENCOUNTER 2021-09-10 01:00 | Outpatient (CLI) | payer OTHER, SELFPAY | END 2021-09-10 01:01 | disposition home or self-care (01) | LOC: RT 01:00 | PROVIDERS: PCP Family Medicine; Visit Provider Pediatrics Pediatric Rheumatology | DX: Z02.71 Encounter for disability determination (principal); J98.9 Respiratory disorder, unspecified | CPT/HCPCS: 94618 ==

== ENCOUNTER 2022-05-09 15:57 | Outpatient (REF) | payer MEDICAID, SELFPAY ==
[2022-05-11 15:47] LABS: HSV 1 DNA Result Negative (Negative); HSV 2 DNA Result Negative (Negative); Varicella Zoster DNA Result Positive ((See Note))
== END 2022-05-09 15:58 | disposition home or self-care (01) ==
LOC: NCHCN 15:57
PROVIDERS: PCP Family Medicine; Visit Provider Family Medicine
DX: B02.9 Zoster without complications (principal)
CPT/HCPCS: 87529; 87798

== ENCOUNTER 2022-09-08 12:20 | Outpatient (REF) | payer MEDICAID, SELFPAY ==
--- NOTE | 2022-09-08 09:15 | PAPFT_PTH ---
PATIENT: Cherrie Miles LOC: [facility]#:[id number] AGE/SX: 62/F ROOM: RE09/08/[address]: Evelia Ramos : 1960 BED: DIS: 09/08/2022 SPEC #: [id number] RECD: 09/08/22 18:03 STATUS: ANN REMaddie #: [id number] SILAS: 09/08/22 09:[address]: Evelia Ramos DEPT: [facility] Cytology RECD BY: Queenie Beatty Tissues: 1 - CX/ENDOCX FOR PAP SMEARS Procedures: PAP THIN PREP/UVM Screening HPV DNA PROBE Comments: [id number]
== END 2022-09-08 12:21 | disposition home or self-care (01) ==
LOC: NCHCN 12:20
PROVIDERS: PCP Family Medicine; Visit Provider Family Medicine
DX: Z12.4 Encounter for screening for malignant neoplasm of cervix (principal); Z11.51 Encounter for screening for human papillomavirus (HPV)
CPT/HCPCS: 88142; 87624

== ENCOUNTER 2022-10-20 01:08 | Outpatient (CLI) | payer MEDICAID, SELFPAY ==
--- NOTE | 2022-10-20 | DI.MAMMO_ITS ---
Exam(s) MAMMO SCREENING EXAM: MAMMO SCREENING CLINICAL HISTORY: SCREENING, Z12.39 TECHNIQUE: Mammograms were interpreted according to the usual protocol including computer analysis w [employer] CAD system, tomosynthesis and C-view imaging. COMPARISON: 2014 through 2020 FINDINGS: The breasts are composed of scattered fibroglandular densities, Breast Density category B. No suspicious masses or suspicious microcalcifications are seen. No skin thickening or abnormal axillary lymph nodes are seen. There has been no significant change from prior exams. IMPRESSION: BI-RADS Category 1, Negative mammogram Yearly screening mammography is recommended. Breast Density - Category B, scattered fibroglandular densities. A negative radiographic report should not delay biopsy if a dominant or clinically suspicious mass is present. Up to ten percent of cancers are not identified on mammography. A negative report may reinforce clinical impression. Adenosis and dense breasts may obscure an underlying neoplasm. False positive reports average 6 to 10%. Patient will receive a letter notifying them of these results.
== END 2022-10-20 01:28 ==
LOC: DI 01:09
PROVIDERS: PCP Family Medicine; Visit Provider Family Medicine
DX: Z12.31 Encounter for screening mammogram for malignant neoplasm of breast (principal)
CPT/HCPCS: 77063; 77067

== ENCOUNTER 2022-11-29 06:16 | Emergency (ER) | payer MEDICAID, SELFPAY ==
--- NOTE | 2022-11-29 06:15 | RT.EKG_ITS ---
APPROVED REPORT Exam: Resting ECG Reason for Exam: syncope Patient Location: E HR:77 bpm ECG Measurements Heart Rate [address] 154 P 38 QRSd 97 QRS -38 QT 380 T 21 QTc 431 Conclusion Sinus rhythm...normal P axis, V-rate 60- 99 Probable left atrial enlargement...P >50mS, <-0.10mV V1 Left axis deviation...QRS axis (-30,-90). Sinus. Left axis. Normal intervals, nonischemic. I have reviewed and interpreted ECG and agree with software generated interpretation.
[2022-11-29 06:20] VITALS: BP 126/82; PULSE 79; RESP 21; TEMP 36.9; O2SAT 99
--- NOTE | 2022-11-29 06:28 | ED.GENADUL_ITS ---
Discharge Plan Disposition Patient Disposition: Home Discharge Details Clinical Impression: Macrocytosis without anemia, Hypomagnesemia, Diarrhea, Abnormal CT of liver Primary Care Provider: Evelia Ramos ED Provider: Moustapha Olvera Home Meds and New Rx's Prescriptions: Continued Centrum Silver Women 8 mg iron-400 mcg-300 mcg tablet 1 tab PO DAILY acetaminophen [Tylenol] 325 mg capsule 650 mg PO ONCE PRN mycophenolate mofetil [CellCept] 250 mg capsule 250 mg PO DIRECTED Rx Instructions: 2 in am. 1 in pm. prednisone 10 mg tablet 10 mg PO DAILY pantoprazole 40 mg tablet,delayed release (DR/EC) 40 mg PO DAILY losartan 50 MG tablet 50 mg PO HS calcitriol 0.5 MCG capsule 0.5 mcg PO DAILY tacrolimus [Prograf] 1 MG capsule 3 - 4 mg PO DIRECTED magnesium gluconate 500 MG tablet 500 mg PO BID No Action triamcinolone acetonide 0.1 % cream 1 applic TOPICAL BID PRN Patient Comments: Apply a small amount to affected area twice a day Discharge Instructions Instructions: Acute Diarrhea (ED), Hypomagnesemia (ED) Additional Instructions: Please read all of the information that accompanies these instructions. You w ere seen in the emergency department for your diarrhea. Your CAT scan showed that you had an abnormality on your liver which is possibly a cyst or a hemangioma. You will likely benefit from an MRI from your primary care with and without contrast. I will send a message to your primary care provider. Your kidney function is at baseline. You have no signs of a bacterial infection in your stomach. Please schedule an appointment with your primary care provider later this week. Please return to the emergency department if if you develop fevers chills shortness of breath or cannot eat or drink.. Discharge Data Discharge Date/Time-TO BE ENTERED AT DEPARTURE: 11/29/22 09:24 Medical Decision Making 0645 -- 62-year-old female with a history of obesity, hypertension, glomerulonephritis status post kidney transplant 9 years ago on chronic immunosuppression with prednisone, tacrolimus and mycophenolate presents for multiple episodes of diarrhea overnight with report of syncopal episode this morning and patient now expressing concern for dehydration as she was only able to urinate a small amount this morning. Patient appears comfortable and nontoxic. Her vitals are within normal limits and reassuring. Her abdomen is soft and minimally tender in the left lower quadrant at the site of her kidney transplant but no evidence of overlying cellulitis. Sister is at bedside and confirms that patient did not fall off the toilet and no report of trauma. In the setting of dizziness that occurs with Valsalva during a bowel movement, suspect most likely vasovagal syncope. Patient denies any chest pain or palpitation to suggest ACS or arrhythmia. She denies any abdominal pain to suggest dissection or ruptured aneurysm. She has no persistent vomiting or abdominal pain to suggest small bowel obstruction. She has no fever or urinary symptoms to suggest UTI. Considering her age and history, will obtain screening labs, CT abdomen and pelvis without contrast, urinalysis, C. difficile and fecal bacterial PCR. Patient is declining IV contrast with CT as she states she does not want to do this with her history of kidney transplant. 0800 -- Case endorsed oncoming provider to follow-up on labs and imaging and final disposition. Medical Records Medical records reviewed: Yes I reviewed the patient's medical records. ECG Data Attestation: I personally reviewed and interpreted this ECG (s) as follows: Interpretation: rate of HPI General Mode of arrival: ambulatory . Date/Time Provider Initiated Documentation: 11/29/22 06:25 . Limitations to Documentation: no limitations . Information obtained by: patient . HPI Narrative: Patient is a 62-year-old female with a history of glomerulonephritis status post kidney transplant approximately 9 years ago on immunosuppression prednisone, tacrolimus and mycophenolate presents from home for multiple episodes of diarrhea since last night with syncopal episode on the toilet this morning. Patient states she had a burger and fries at a diner 3 days ago and had 1 episode of watery brown diarrhea after that and one episode the following day but then it resolved. She states throughout the day yesterday she was doing well and had more formed but soft brown stools. She states she ate teriyaki chicken for dinner last night and then shortly after developed watery brown diarrhea of which she has had multiple episodes all night long and this morning. She states over an hour ago she was having a bowel movement when she felt lightheaded and told her to call her sister because she was going out and told her sister to call 911. Patient reports that she thinks she passed out on the toilet but did not fall off of the toilet. Sister at bedside reports that she was on the phone with the patient at this time and reports that patient slumped over on the toilet for short amount of time but did not fall off of the toilet. Patient denies any head injury, chest injury back injury or extremity injury. She denies any significant pain during these episodes. She does admit to vomiting once this morning which was mainly clear and the food she ate last night. She denies any recent travel, recent antibiotics or new medications. She states she was mainly concerned at this time for dehydration as she only urinated a small amount this morning with one of her episodes of diarrhea. Related Data Home Medications Medication Instructions Recorded Confirmed losartan 50 mg tablet 50 mg PO HS 10/23/14 11/29/22 calcitriol 0.5 mcg capsule 0.5 mcg PO DAILY 11/24/17 11/29/22 magnesium gluconate 27 mg 500 mg PO BID 11/24/17 11/29/22 magnesium (500 mg) tablet tacrolimus 1 mg capsule, 3 - 4 mg PO DIRECTED 11/24/17 11/29/22 immediate-release (Prograf) acetaminophen 325 mg capsule 650 mg PO ONCE PRN 06/08/21 11/29/22 (Tylenol) multivit with 1 tab PO DAILY 06/08/21 11/29/22 [id number] 8 mg iron-400 mcg-300 mcg tablet (Centrum Silver Women) mycophenolate mofetil 250 mg 250 mg PO DIRECTED 06/08/21 11/29/22 capsule (CellCept) pantoprazole 40 mg tablet,delayed 40 mg PO DAILY 06/10/21 11/29/22 release prednisone 10 mg tablet 10 mg PO DAILY 06/10/21 11/29/22 triamcinolone acetonide 0.1 % 1 applic topical BID PRN 11/29/22 11/29/22 topical cream Allergies Allergy/AdvReac Type Severity Reaction Status Date / Time Sulfa (Sulfonamide Allergy Severe Hives Unverified 11/29/22 06:17 Antibiotics) ciprofloxacin AdvReac Intermediate nausea Verified 11/29/22 06:17 levofloxacin [From Levaquin] AdvReac Intermediate impact on Verified 11/29/22 06:17 kidneys General Stated Complaint: Abd Prob DIRK: 3 Review of Systems All systems reviewed & are unremarkable except as noted in HPI and below Constitutional Constitutional: Reports as per HPI, Denies chills and Denies fever(s) Eyes Eyes: Denies blurry vision ENT Ears, Nose, Mouth, and Throat: Denies dizziness, Denies sore throat and Denies throat swelling Cardiovascular Cardiovascular: Denies chest pain and Denies dyspnea Respiratory Respiratory: Denies cough and Denies dyspnea Gastrointestinal Gastrointestinal: Denies abdominal pain, Reports diarrhea and Denies vomiting Genitourinary Genitourinary: Denies hematuria and Denies dysuria Musculoskeletal Musculoskeletal: Denies back pain and Denies numbness Integumentary/Breasts Skin/Breast: Denies lesions and Denies rash Neurologic Neurologic: Denies dizziness, Denies localized weakness and Denies numbness Allergic/Immunologic Allergic/Immunologic: Denies throat swelling PFSH All Active Problems (Updated 06/08/21 @ 08:51 by Jossie Quiñonez RN) Macrocytosis without anemia (Acute) Hypomagnesemia (Acute) Diarrhea (Acute) Abnormal CT of liver (Acute) Skin lesion (Acute) Obesity (Chronic) History of immunosuppressive therapy (Acute) History of adenomatous polyp of colon (Acute) Screening for colon cancer (Acute) Steroid dependence (Acute) Kidney transplant recipient (Acute) Medical History (Updated 11/29/22 @ 08:49 by Moustapha Olvera MD) Chronic sinusitis Fatigue Glomerulonephritis Light-headedness Plantar fasciitis, left 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 moving towards renal transplant Shingles Snoring Surgical History (Updated 06/08/21 @ 08:51 by Jossie Quiñonez RN) History of colonoscopy (~10/2014) Transplanted kidney Family History Mother Personal history of malignant neoplasm ovarian CA Social History Smoking/Tobacco Use Status: Former Tobacco Use Smoking risk assessment performed?: Yes Drug use: Never Substance use type: does not use Do you feel safe at home: Yes Do you feel safe in your relationship?: Yes Exam Const General: cooperative and no acute distress Orientation: alert, awake and oriented x3 HENMT Head: normal to inspection Face and sinus: normal facial exam Eyes General: appearance normal, both eyes and all related structures Pupils: PERRL EOM: EOM intact bilaterally Neck Neck: normal visual inspection and No submandibular swelling Lymphatic: no lymphadenopathy noted Chest Chest: normal inspection of the chest and no tenderness Resp Effort & Inspection: normal respiratory effort and able to speak in complete sentences Auscultation: clear to auscultation bilaterally Cardio Rate: regular rate Rhythm: regular rhythm GI Inspection: normal to inspection and obesity Palpation: soft, not firm, not rigid and tender in the LLQ (mild, at site of kidney transplant) Auscultation: hypoactive bowel sounds Back/Spine/Pelvis Cervical Spine: No cervical spinal tenderness Thoracic/Lumbar Spine: thoracic and lumbar spine normal to inspection, No thoracic spinal tenderness and No lumbar spinal tenderness Skin General skin exam: no rashes or lesions noted Neuro General: patient alert, patient awake and patient oriented x3 Cognition: normal cognition Speech: speech normal Motor: muscle tone normal throughout Sensory Exam: no sensory deficits noted Extrem General: normal to inspection, full ROM, capillary refill normal, no calf tenderness bilaterally and no edema Psych Appearance: grossly normal Mental Status: mental status grossly normal Speech and Movement: speech and movement normal Affect: normal affect Course Vital Signs Vital signs: Vital Signs Temperature 98.5 F 11/29/22 06:20 Pulse 79 11/29/22 06:20 Respiratory Rate 21 11/29/22 06:20 Pulse Oximetry 99 11/29/22 06:20 Temperature 98.5 F 11/29/22 06:20 Temperature Source Oral 11/29/22 06:20 Pulse 79 11/29/22 06:20 Respiratory Rate 21 11/29/22 06:20 Blood Pressure Position Sitting 11/29/22 06:20 Pulse Oximetry 99 11/29/22 06:20 Oxygen Delivery Method Room Air 11/29/22 06:20 Oxygen Flow Rate 0 11/29/22 06:20 Pain Level 0 11/29/22 06:20 Sign Out Sign Out Data: Sign Out Comment: History of kidney transplant 9 years ago on chronic immunosuppression. Multiple episodes of diarrhea overnight, she is concerned about possible dehydration. Follow-up on labs and imaging and final disposition. Last updated by Nicolasa Tenorio DO at 11/29/22 07:54
[2022-11-29 06:35] LABS: Abs Immature Grans 0.04 10^3/uL (0.0-0.06); Absolute Basophil Count 0.05 10^3/uL (0.0-0.2); Absolute Lymphocyte Count 0.37 10^3/uL (1.2-3.4); Absolute Monocyte Count 0.84 10^3/uL (0.1-0.8); Absolute Neutrophil Count 6.64 10^3/uL (1.2-6.7); Basophils % 0.6; Eosinophils % 2.5; HCT 39.1 % (36.0-46.0); HGB 12.7 g/dL (11.2-15.7); Immature Grans % 0.5; Lymphocytes % 4.5; MCH 31.8 pg (27.0-33.0); MCHC 32.5 % (32.0-36.0); MCV 98 fL (80-95); MPV 10.4 fL (8.0-11.0); Monocytes % 10.3; Neutrophils % 81.6; Platelet Count 205 10^3/uL (130-400); RDW 13.2 % (11.7-14.6); WBC 8.14 10^3/uL (4.4-10.8)
[2022-11-29 06:54] LABS: ALT 25 U/L (14-59); AST 20 U/L (15-37); Albumin 3.5 g/dL (3.4-5.0); Alkaline Phosphatase 76 U/L (46-116); Anion Gap 10.5 mmol/L (3-11); BUN 23 mg/dL (7-18); Bilirubin, Total 0.6 mg/dL (0.2-1.0); CO2 25.5 mmol/L (21.0-32.0); CREATININE 1.7 mg/dL (0.55-1.02); Calcium 8.9 mg/dL (8.5-10.1); Chloride 104 mmol/L (98-107); Estimated GFR 33.91 (mL/min/1.73m2); Glucose 109 mg/dL (74-106); Magnesium 1.5 mg/dL (1.8-2.4); Potassium 3.8 mmol/L (3.5-5.1); Sodium 140 mmol/L (136-145); Total Protein 6.2 g/dL (6.4-8.2); Troponin I < 50 ng/L (<or=60)
--- NOTE | 2022-11-29 07:08 | DI.CT_ITS ---
Exam(s) CT ABDOMEN PELVIS WO EXAM: CT ABDOMEN PELVIS WO CLINICAL HISTORY: nausea, vomiting diarrhea, r/o acute process. TECHNIQUE: Imaging Protocol: Axial computed tomography images with coronal and sagittal reformatted images were created and reviewed CONTRAST MATERIAL: Intravenous: none Oral: None COMPARISON: No exams were available for comparison FINDINGS: VISUALIZED LUNG BASES: No nodules nor pleural effusions evident. ABDOMEN: There is no ascites. LIVER: A solitary well-defined focal hypodensity in right hepatic lobe measuring 2.4 x 1. 8 cm. Pro bably cyst or hemangioma. No other focal liver findings. GALLBLADDER/BILIARY: No obvious gallbladder pathology. CBD is not dilated. PANCREAS: Somewhat atrophic pancreatic body and tail. Pancreatic head and neck appear unremarkable. There is, however, a 1.7 by 1.1 cm density in the pancreatic tail region which possibly just remnant gland possibly a prominent lymph node. It exhibits similar density to the spleen but is slightly di stant from the spleen to be a typical splenule. SPLEEN: Spleen is not enlarged. No obvious intrasplenic lesions. ADRENALS: There are no significant adrenal masses. KIDNEYS:[place] kidneys are cysts bilaterally atrophic and contain benign cysts. The left iliac fossa transplant kidney exhibits normal size without evidence of masses nor cysts nor obstruction. No scott culi therein.. ABDOMINAL AORTA: Abdominal aorta is not enlarged. LYMPH NODES: There is no retroperitoneal nor paraaortic adenopathy. ABDOMINAL WALL: There is a fat containing left inguinal hernia. Does not contain bowel loops within the hernia sac. GI: Small bowel loop diameters are all upper normal. No transition point. Cannot exclude subtle ent eritis pattern. There is fluid seen throughout the right side of the colon and transverse colon; probably diarrhea st ate. No obvious colitis pattern. There diverticuli in the sigmoid but no evidence of obvious acute diverticulitis. No evidence of appendicitis. PELVIS: LYMPH NODES: There is no intrapelvic nor inguinal adenopathy. GI: No evidence of appendicitis. URINARY BLADDER: No calculi nor obvious masses evident REPRODUCTIVE: Uterus and adnexal regions appear age-appropriate. There is no free fluid. OSSEOUS: No fractures nor significant osseous lesions. Pars defects at L5 noted without prominent li sthesis. IMPRESSION: 1. Atrophic [place] kidneys which contain benign cyst. Normal appearing left iliac fossa transplant [place]. 2. Fluid-filled large bowel consistent with diarrhea state. No obvious colitis pattern. There is si gmoid diverticulosis but no evidence of acute diverticulitis and there is no evidence of acute append icitis. 3. The small bowel loop diameters are all upper normal. Appearance may reflect enteritis pattern. However, there is no evidence of small-bowel obstruction. 4. there is a benign-appearing well-defined 24 x 18 mm hypodensity in the liver which is probably a c yst or hemangioma. 5. The pancreatic body is atrophic. There is a 1.7 x 1.1 cm density in the region of the pancreatic tail. This may represent some remnant tissue or possibly a splenule or lymph node in this region. 6. other findings as above. Report called by myself to ER physician. RADIATION DOSE DELIVERED: 1,055.68mGy.cm Total DLP DATA REPOSITORY: All CT scans at this facility are submitted to the National Radiology Data Registry (NRDR) Dose Index Registry (DIR) with the [employer] (A[employer]). RADIATION OPTIMIZATION: All CT scans at this facility use at least one of these dose optimization te chniques: automated exposure control; mA and/or kV adjustment per patient size (includes targeted exa ms where dose is matched to clinical indication); or iterative reconstruction.
[2022-11-29] MEDS: MAGNESIUM SULFATE 2 GM/50 ML BAG IVPB (07:15)
[2022-11-29] MEDS: Normal Saline 1,000 ML 1000 ML IV (07:15)
[2022-11-29 08:10] LABS: C Diff PCR Negative (Negative)
--- NOTE | 2022-11-29 08:20 | W.ED.FU ---
Date of service: 11/29/22 Time of Service: 08:20 Follow Up Plan: I received signout on this 62-year-old female who is 9 years status post renal transplant on mycophenolate and prednisone along with tacrolimus. She had presyncope on the toilet earlier today. Subsequently she has been walking. She had an ECG performed which shows intervals within normal limits. No ST segment abnormalities. She is pending a dry CT scan C. difficile assay and a UA. She received 1 L of fluids initially, will redose with initial 500 cc and reassess. 8:23 AM Negative troponin. Comprehensive metabolic panel with no ED but CKD. Mildly elevated BUN at 23 mg/dL which is slightly improved compared to prior. Mild hypomagnesemia for which patient will receive IV repletion. Macrocytosis without anemia. No leukocytosis. No thrombocytopenia. C. difficile PCR negative. 8:45 AM Urinalysis nitrite leukoesterase negative. Also negative for hematuria and glucosuria. CT abdomen without contrast showing no obvious colitis but large bowel with fluid consistent with diarrhea. No diverticulitis nor appendicitis. There was a liver abnormality on CT likely a cyst or hemangioma. Patient will likely benefit from an MRI with and without contrast to further delineate this abnormality. I placed this information in the patient's discharge summary. I have asked health loading unit tool setter Regino to have the patient seen in follow-up by her primary care provider to arrange outpatient MRI. I met with the patient and explained this incidental finding. She felt improved following fluids. We will ensure that her tacrolimus and mycophenolate levels are drawn and discharged home. I advised her to return if she cannot eat or drink, if she develops fevers, or develop vomiting or diarrhea that does not stop. I have advised that she can consider an empiric trial of single dose outpatient Imodium.
[2022-11-29] MEDS: Normal Saline 500 ML IV (08:23)
[2022-11-29 08:42] LABS: Bilirubin Negative (Negative); Blood Negative (Negative); Clarity Clear (Clear); Glucose Negative (Negative); Ketones Negative (Negative); Leukocyte Esterase Negative (Negative); Nitrite Negative (Negative); Urobilinogen 0.2 mg/dL (Up to 0.2)
--- NOTE | 2022-11-29 08:43 | DI.VRAD_ITS ---
PROCEDURE INFORMATION: Exam: CT Abdomen And Pelvis Without Contrast Exam date and time: 11/29/2022 7:02 AM Age: 62 years old Clinical indication: Patient HX: Nausea vomiting diarrhea, r/) acute process; Additional info: Kidney transplant 9 years ago. TECHNIQUE: Imaging protocol: Computed tomography of the abdomen and pelvis without contrast. Radiation optimization: All CT scans at this facility use at least one of these dose optimization techniques: automated exposure control; mA and/or kV adjustment per patient size (includes targeted exams where dose is matched to clinical indication); or iterative reconstruction. COMPARISON: CR XR CHEST 2V PA LATERAL 01/11/2021 6:58 PM FINDINGS: Liver: Simple cyst measuring 2.4 cm. Gallbladder and bile ducts: Normal. No calcified stones. No ductal dilation. Pancreas: Normal. No ductal dilation. Spleen: Normal. No splenomegaly. Adrenal glands: Normal. No mass. Kidneys and ureters: Left iliac fossa renal transplant. Atrophic [place] kidneys with multiple simple cysts No hydronephrosis. Stomach and bowel: Fluid level/liquid stool in the colon. Colonic diverticulosis. Mild small bowel thickening No obstruction. Appendix: No evidence of appendicitis. Intraperitoneal space: Unremarkable. No free air. No significant fluid collection. Vasculature: Unremarkable. No abdominal aortic aneurysm. Lymph nodes: Unremarkable. No enlarged lymph nodes. Urinary bladder: Unremarkable as visualized. Reproductive: Unremarkable as visualized. Bones/joints: Chronic spondylolysis without spondylolisthesis at L5-S1. Degenerative changes in the spine. No acute fracture. Soft tissues: Unremarkable. IMPRESSION: Question mild enteritis/enterocolitis/diarrheal disease Nonurgent findings as noted Dictated and Authenticated by: Gibson Alejandra MD. Ordering:GABRIEL Baldwin MD
[2022-11-29 09:16] VITALS: BP 137/87; PULSE 78; RESP 18; O2SAT 100
[2022-11-29 09:18] VITALS: BP 137/87; PULSE 78; RESP 18; O2SAT 100
[2022-11-29 22:59] LABS: Campylobacter PCR Negative (Negative); Salmonella PCR Negative (Negative); Shiga Toxin PCR Negative (Negative); Shigella/Enteroinvasive Ecoli Negative (Negative)
[2022-11-30 17:37] LABS: MPA Glucuronide 21 mcg/mL (35 - 100); Mycophenolic Acid 0.6 mcg/mL (1.0 - 3.5)
[2022-12-01 13:03] LABS: Tacrolimus 6.8 ng/mL (See Note)
== END 2022-11-29 09:24 | disposition home or self-care (01) ==
PROVIDERS: Physician Assistant; Emergency Provider Emergency Medicine; PCP Family Medicine
DX: D75.89 Other specified diseases of blood and blood-forming organs (principal); E83.42 Hypomagnesemia; R19.7 Diarrhea, unspecified; R93.2 Abnormal findings on diagnostic imaging of liver and biliary tract; Z94.0 Kidney transplant status; Z79.899 Other long term (current) drug therapy; R55 Syncope and collapse
CPT/HCPCS: 36415; 36416; 80048; 80053; 82962; 87040; 87425; 87493; 87505; 87637; 87798; 93005; 96361; 96365; 96366; 96374; 99284; 99285; 74176; 80180; 80197; 81003; 83735; 84484; 85025; 93010; J2405

== ENCOUNTER 2022-11-29 11:43 | Emergency (ER) | payer MEDICAID, SELFPAY ==
[2022-11-29 11:50] VITALS: BP 115/80; PULSE 90; RESP 18; TEMP 37; O2SAT 97
--- NOTE | 2022-11-29 12:45 | W.ED.GENAD ---
Discharge Plan Discharge Details Chief Complaint: Nausea/Vomit/Diar Primary Care Provider: Evelia Ramos ED Provider: Moustapha Olvera Home Meds and New Rx's Prescriptions: No Action Centrum Silver Women 8 mg iron-400 mcg-300 mcg tablet 1 tab PO DAILY acetaminophen [Tylenol] 325 mg capsule 650 mg PO ONCE PRN mycophenolate mofetil [CellCept] 250 mg capsule 250 mg PO DIRECTED Rx Instructions: 2 in am. 1 in pm. prednisone 10 mg tablet 10 mg PO DAILY pantoprazole 40 mg tablet,delayed release (DR/EC) 40 mg PO DAILY losartan 50 MG tablet 50 mg PO HS calcitriol 0.5 MCG capsule 0.5 mcg PO DAILY tacrolimus [Prograf] 1 MG capsule 3 - 4 mg PO DIRECTED magnesium gluconate 500 MG tablet 500 mg PO BID Medical Decision Making This is an uncomfortable appearing normothermic and not tachycardic immunosuppressed 62-year-old female 9-year status post renal transplant now with syncope and persistent diarrhea on her second ED visit today with transplant advising hospitalization. We will recheck renal function, given vomiting will treat with ondansetron, and also order 500 cc of crystalloid. I ordered 2 sets of blood cultures as patient has a history of immunosuppression on mycophenolate tacrolimus and prednisone. We will defer empiric antibiotics at this point time as patient does not appear septic. Furthermore I did not send a lactate. No pain out of proportion to suggest necrotizing soft tissue infection. No chest pain to suggest ACS. CT scan from earlier today with no acute pathology so will defer repeat imaging. Once I speak with transplant we will reach out to the hospitalist team. Given syncope will repeat ECG. 1:45 PM I spoke with Dr. Carranza from transplant. He advised keeping the patient n.p.o. for 24 hours and running her at 125 cc/hr on normal saline. He noted that he is seen numerous cases of norovirus and rotavirus recently. He was concerned about the possibility of sporotrichosis, rotavirus, norovirus. I have ordered a send out & norovirus & rotavirus. Patient reports that she drinks bottled water so we will defer sporotrichosis at this point time. [address] Tavera from the hospitalist team. She was concerned that she would not be able to monitor the patient's tacrolimus and mycophenolate levels as these are send out labs at our institution. She also is concerned that she would not be able to give the patient these medications intravenously as patient is unable to absorb any oral medications at the moment. 2:10 PM I spoke again to Dr. Carranza who felt that transfer was not unreasonable given concern for toxicity secondary to tacrolimus with ongoing GI losses. I spoke with [facility] requesting transfer. 3 PM CBC with no anemia or thrombocytopenia noted leukocytosis. Basic metabolic panel with no ED. Mild anion gap. Normal potassium. 345pm I spoke to Dr. Mishra from [facility] medicine team. He accepted patient to floor. Will sign transfer paperwork. 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 Left axis deviation no signs of LVH based on voltage criteria. Intervals within normal limits. No acute injury pattern. No T wave inversions. Appears similar to prior dated earlier today. [Per my independent interpretation EKG shows:] Narrow complex normal sinus rhythm at a rate of 75. Left axis deviation no signs of LVH based on voltage criteria. Intervals within normal limits. No acute injury pattern. No T wave inversions. Appears similar to prior dated earlier today. Medications: Ondansetron Social determinants of health affecting disposition: N/A Management discussed with: Transplant at [facility] Treatment/interventions considered: N/A Response to therapies provided: Improved nausea status post ondansetron HPI General Date/Time Provider Initiated Documentation: 11/29/22 12:04. HPI Narrative: This is a 62-year-old female with a history of renal transplant 9 years ago now back in the ED following a visit earlier today in the setting of nausea vomiting and diarrhea. Patient had a reassuring dry CT scan earlier today. She had labs drawn with no ED. She has had constant diarrhea back at home. No recent antibiotics and negative recent C. difficile. Patient attempted treatment twice with 4 mg of Imodium but this did not improve her diarrhea. She called her transplant team who advised hospitalization. She did have a recurrent episode of syncope but did not fall nor hit her head. Related Data Home Medications Medication Instructions Recorded Confirmed losartan 50 mg tablet 50 mg PO HS 10/23/14 11/29/22 calcitriol 0.5 mcg capsule 0.5 mcg PO DAILY 11/24/17 11/29/22 magnesium gluconate 27 mg 500 mg PO BID 11/24/17 11/29/22 magnesium (500 mg) tablet tacrolimus 1 mg capsule, 3 - 4 mg PO DIRECTED 11/24/17 11/29/22 immediate-release (Prograf) acetaminophen 325 mg capsule 650 mg PO ONCE PRN 06/08/21 11/29/22 (Tylenol) multivit with 1 tab PO DAILY 06/08/21 11/29/22 zminirbq-inxl-DF-lutein 8 mg iron-400 mcg-300 mcg tablet (Centrum Silver Women) mycophenolate mofetil 250 mg 250 mg PO DIRECTED 06/08/21 11/29/22 capsule (CellCept) pantoprazole 40 mg tablet,delayed 40 mg PO DAILY 06/10/21 11/29/22 release prednisone 10 mg tablet 10 mg PO DAILY 06/10/21 11/29/22 Allergies Allergy/AdvReac Type Severity Reaction Status Date / Time Sulfa (Sulfonamide Allergy Severe Hives Unverified 11/29/22 06:17 Antibiotics) ciprofloxacin AdvReac Intermediate nausea Verified 11/29/22 06:17 levofloxacin [From Levaquin] AdvReac Intermediate impact on Verified 11/29/22 06:17 kidneys General Stated Complaint: Nausea/Vomit/Diar DIRK: 3 PFSH All Active Problems (Updated 06/08/21 @ 08:51 by Jossie Quiñonez RN) Macrocytosis without anemia (Acute) Hypomagnesemia (Acute) Diarrhea (Acute) Abnormal CT of liver (Acute) Skin lesion (Acute) Obesity (Chronic) History of immunosuppressive therapy (Acute) History of adenomatous polyp of colon (Acute) Screening for colon cancer (Acute) Steroid dependence (Acute) Kidney transplant recipient (Acute) Medical History (Updated 11/29/22 @ 08:49 by Moustapha Olvera MD) Chronic sinusitis Fatigue Glomerulonephritis Light-headedness Plantar fasciitis, left 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 moving towards renal transplant Shingles Snoring Surgical History (Updated 06/08/21 @ 08:51 by Jossie Quiñonez RN) History of colonoscopy (~10/2014) Transplanted kidney Family History Mother Personal history of malignant neoplasm ovarian CA Social History Smoking/Tobacco Use Status: Former Tobacco Use Smoking risk assessment performed?: Yes Drug use: Never Substance use type: does not use Do you feel safe at home: Yes Do you feel safe in your relationship?: Yes Exam Narrative Exam Narrative: General: Well-appearing in no acute distress speaking in complete sentences. Head: Normocephalic, atraumatic. Eye: Pupils equal, round reactive to light. Extraocular eye movements intact. No conjunctival injection. No scleral icterus. Ear, nose, mouth, throat: Grossly normal inspection. Normal voice, handling secretions normally. Neck: Trachea midline. Cardiovascular: Well-perfused distal extremities. Respiratory: Nonlabored respiration. Gastrointestinal: Nondistended abdomen. Soft nontender abdomen. No rebound or guarding. Musculoskeletal: No edema. Moving all 4 extremities spontaneously. Skin: Normal for age and race, grossly normal temperature and turgor. No acute rash. Neurologic: Alert and appropriate, no apparent acute deficits. Psychiatric: Mood and manner are appropriate. Grooming and personal hygiene are appropriate. Course Vital Signs Vital signs: Vital Signs Temperature 37.0 C 11/29/22 11:50 Pulse 90 11/29/22 11:50 Respiratory Rate 18 11/29/22 11:50 Blood Pressure 115/80 11/29/22 11:50 Pulse Oximetry 97 11/29/22 11:50 Temperature 37.0 C 11/29/22 11:50 Temperature Source Skin 11/29/22 11:50 Pulse 90 11/29/22 11:50 Respiratory Rate 18 11/29/22 11:50 Respiratory Effort Normal, Non-Labored 11/29/22 12:26 Blood Pressure 115/80 11/29/22 11:50 Blood Pressure Position Supine 11/29/22 11:50 Pulse Oximetry 97 11/29/22 11:50 Oxygen Delivery Method Room Air 11/29/22 11:50 Oxygen Flow Rate 0 11/29/22 11:50 Pain Level 0 11/29/22 11:50
--- NOTE | 2022-11-29 13:15 | RT.EKG_ITS ---
APPROVED REPORT Exam: Resting ECG Reason for Exam: Syncope Patient Location: E HR:75 bpm ECG Measurements Heart Rate 75 AXIS PA 153 P 36 QRSd 93 QRS -35 QT 383 T 21 QTc 428 Conclusion Sinus rhythm...normal P axis, V-rate 60- 99 Probable left atrial enlargement...P >50mS, <-0.10mV V1 Left axis deviation...QRS axis (-30,-90) Narrow complex normal sinus rhythm at a rate of 75. Left axis deviation no signs of LVH based on vol tage criteria. Intervals within normal limits. No acute injury pattern. No T wave inversions. Vivienne ears similar to prior dated earlier today.
[2022-11-29] MEDS: Normal Saline 500 ML IV (13:35)
[2022-11-29] MEDS: Ondansetron 4 MG/2 ML VIAL IVP (13:35)
[2022-11-29 13:36] LABS: Abs Immature Grans 0.04 10^3/uL (0.0-0.06); Absolute Basophil Count 0.03 10^3/uL (0.0-0.2); Absolute Eosinophil Count 0.14 10^3/uL (0.0-0.7); Absolute Lymphocyte Count 0.14 10^3/uL (1.2-3.4); Absolute Monocyte Count 0.92 10^3/uL (0.1-0.8); Absolute Neutrophil Count 7.99 10^3/uL (1.2-6.7); Basophils % 0.3; Eosinophils % 1.5; HCT 38.7 % (36.0-46.0); HGB 12.8 g/dL (11.2-15.7); Immature Grans % 0.4; Lymphocytes % 1.5; MCHC 33.1 % (32.0-36.0); MCV 97 fL (80-95); Monocytes % 9.9; Neutrophils % 86.4; Platelet Count 233 10^3/uL (130-400); RDW 13.3 % (11.7-14.6); RDW-SD 47.4 fL; WBC 9.26 10^3/uL (4.4-10.8)
[2022-11-29 13:57] LABS: Anion Gap 12.3 mmol/L (3-11); BUN 21 mg/dL (7-18); CO2 21.7 mmol/L (21.0-32.0); CREATININE 1.5 mg/dL (0.55-1.02); Chloride 108 mmol/L (98-107); Glucose 114 mg/dL (74-106); Potassium 3.7 mmol/L (3.5-5.1); Sodium 142 mmol/L (136-145)
[2022-11-29] MEDS: Normal Saline 1,000 ML 125 ML IV (14:34)
[2022-11-29 15:20] LABS: COVID-19 PCR Negative (Negative); Influenza A PCR Negative (Negative); Influenza B PCR Negative (Negative); RSV PCR Negative (Negative)
[2022-11-29 15:31] LABS: Source Nasopharynx
[2022-11-29 15:50] VITALS: BP 124/79; PULSE 79; RESP 18; TEMP 37.4; O2SAT 97
--- NOTE | 2022-11-29 15:50 | NUR.NOTE ---
pt resting comfortably in bed. Less frequent bowel movements at this time. pt states she is feeling better than when she firs came to ED.
--- NOTE | 2022-11-29 15:56 | W.ED.FU ---
Follow Up Plan: Patient's respiratory viral panel was negative for RSV, COVID, and influenza.
[2022-11-29 18:23] VITALS: RESP 18
[2022-11-29 18:53] VITALS: BP 149/80; PULSE 75; RESP 18; TEMP 37.8; O2SAT 98
--- NOTE | 2022-11-29 18:53 | NUR.NOTE ---
Chapis Cullen made aware of pts temp of 100.1f, pt also requesting ice chips. Gave verbal permission to give ice chips. Does not want to give tylenol at this time.
[2022-12-02 14:47] LABS: Rotavirus Antigen, Feces Positive (Negative)
[2022-12-02 18:29] LABS: Norovirus G1 PCR Negative (Negative); Norovirus G2 PCR Negative (Negative)
== END 2022-11-29 19:11 ==
PROVIDERS: Emergency Provider Emergency Medicine; PCP Family Medicine
DX: R19.7 Diarrhea, unspecified (principal); R11.2 Nausea with vomiting, unspecified; Z94.0 Kidney transplant status
CPT/HCPCS: 36415; 80048; 87040; 87425; 87637; 87798; 93005; 96361; 96374; 99285; 85025; 93010; J2405

== ENCOUNTER 2023-10-04 15:25 | Outpatient (REF) | payer MEDICAID, SELFPAY ==
--- NOTE | 2023-10-04 09:30 | PAPFT_PTH ---
PATIENT: Cherrie Miles LOC: [facility]#:[id number] AGE/SX: 63/F ROOM: RE10/04/[address]: Evelia Ramos : 1960 BED: DIS: 10/04/2023 SPEC #: [id number] RECD: 10/04/23 17:29 STATUS: ANN REMaddie #: [id number] SILAS: 10/04/23 09:[address]: Evelia Ramos DEPT: [facility] Cytology RECD BY: Queenie Beatty Tissues: 1 - CX/ENDOCX FOR PAP SMEARS Procedures: PAP THIN PREP/UVM Screening HPV DNA PROBE Comments: [id number]
== END 2023-10-04 15:26 | disposition home or self-care (01) ==
LOC: NCHCN 15:25
PROVIDERS: PCP Family Medicine; Visit Provider Family Medicine
DX: Z12.4 Encounter for screening for malignant neoplasm of cervix (principal); Z11.51 Encounter for screening for human papillomavirus (HPV)
CPT/HCPCS: 88142; 87624

== ENCOUNTER → 2024-01-04 00:02 | Outpatient (CLI) | payer MEDICAID, SELFPAY ==
--- NOTE | 2024-01-04 | DI.MAMMO_ITS ---
Exam(s) MAMMO SCREENING EXAM: MAMMO SCREENING CLINICAL HISTORY: SCREENING Z12.31 TECHNIQUE: Bilateral full field digital CC and MLO mammographic images were obtained with 3D tomosyn thesis and utilizing computer aided detection (CAD). COMPARISON: Available for comparison. FINDINGS: Masses/Architectural Distortion: None seen. Microcalcifications: No suspicious pleomorphic-type are seen. Skin Thickening/Nipple Retraction: None. IMPRESSION: 1. No significant interval change with no specific features of malignancy noted. 2. Unless there is more urgent need, screening mammography is recommended, as per [employer] guidelines. BI-RADS Category 1 - Negative Breast Density - Category B - Scattered areas of fibroglandular density Breast density category C or D implies that the patient has dense breast tissue. Dense breast tissue is very common and is not abnormal but dense breast tissue can make it harder to find cancer on a ma mmogram. Also, dense breast tissue may increase their breast cancer risk. This information about the result of the mammogram report was provided to the patient to raise their awareness. Use this report when you speak with the patient about their risks for breast cancer, which includes their family hist ory. At that time, you may recommend for more screening tests (Ultrasound or MRI) as they might be us eful based on their risk. A negative radiographic report should not delay biopsy if a dominant or clinically suspicious mass is present. Up to ten percent of cancers are not identified on mammography. A negative report may reinforce clinical impression. Adenosis and dense breasts may obscure an underlying neoplasm. False positive reports average 6 to 10%. Patient will receive a letter notifying them of these results.
--- NOTE | 2024-01-04 | DI.DEXA_ITS ---
Exam(s) XR DEXA BONE DENSITY W/WO LEROY EXAM: XR DEXA BONE DENSITY W/WO LEROY CLINICAL HISTORY: POST MENOPAUSAL STATE Z78.0 TECHNIQUE: COMPARISON: CR XR DEXA BONE DENSITY W/WO LEROY from 06/10/2020 FINDINGS: Lateral Spine Image: Limited visualization of the thoracic spine is noted. No lumbar compression fra cture deformities are seen. Left hip: Total T-Score: -0.9. This compares to -0.8 on the prior examination. Total Z-Score: 0.1 T- and Z-scores: Within normal limits. There is no evidence of osteoporosis. Lumbar Spine: Total T-Score: -0.6. This compares to -0.8 on the prior examination. Total Z-Score: 1.0 T- and Z-scores: There is no evidence of osteoporosis. IMPRESSION: No evidence of osteoporosis.
== END ==
PROVIDERS: PCP Family Medicine; Visit Provider Family Medicine
DX: Z12.31 Encounter for screening mammogram for malignant neoplasm of breast (principal); Z13.820 Encounter for screening for osteoporosis; Z78.0 Asymptomatic menopausal state
CPT/HCPCS: 77063; 77067; 77080

== ENCOUNTER 2024-08-02 15:34 | Outpatient (REF) | payer MEDICAID, SELFPAY ==
[2024-08-02 19:17] LABS: HCT 35.4 % (36.0-46.0); HGB 11.5 g/dL (11.2-15.7); MCH 34.4 pg (27.0-33.0); MCHC 32.5 % (32.0-36.0); MPV 10.3 fL (8.0-11.0); Platelet Count 262 10^3/uL (130-400); RBC 3.34 10^6/uL (3.93-5.22); RDW 13.1 % (11.7-14.6); WBC 11.53 10^3/uL (4.4-10.8)
[2024-08-02 19:31] LABS: MCV 106 fL (80-95)
[2024-08-02 19:32] LABS: ALT 21 U/L (14-59); AST 13 U/L (15-37); Albumin 3.7 g/dL (3.4-5.0); Alkaline Phosphatase 68 U/L (46-116); Anion Gap 2.9 mmol/L (3-11); BUN 23 mg/dL (7-18); CO2 30.1 mmol/L (21.0-32.0); CREATININE 1.2 mg/dL (0.55-1.02); Calcium 8.7 mg/dL (8.5-10.1); Chloride 109 mmol/L (98-107); Estimated GFR 51.18 (mL/min/1.73m2); Glucose 94 mg/dL (74-106); Magnesium 1.7 mg/dL (1.8-2.4); PHOSPHORUS 3.5 mg/dL (2.6-4.7); Potassium 4.4 mmol/L (3.5-5.1); Sodium 142 mmol/L (136-145); Total Protein 5.8 g/dL (6.4-8.2); Uric Acid 5.7 mg/dL (2.6-6.0)
[2024-08-05 10:24] LABS: C3 Complement 103 mg/dL (81-157); C4 Complement 30 mg/dL (13-39)
== END 2024-08-02 15:35 | disposition home or self-care (01) ==
LOC: NCHCN 15:34
PROVIDERS: PCP Family Medicine; Visit Provider Family Medicine
DX: Z94.4 Liver transplant status (principal)
CPT/HCPCS: 80053; 85027; 83735; 84100; 84550; 86160

== ENCOUNTER 2024-08-20 14:15 | Outpatient (CLI) | payer MEDICAID, SELFPAY ==
--- NOTE | 2024-08-20 | DI.RAD_ITS ---
Exam(s) XR CHEST 2V PA LATERAL EXAM: XR CHEST 2V PA LATERAL CLINICAL HISTORY: Persistent cough, R05.3; fever, R50.9; s/p kidney replacement, Z94.0; TECHNIQUE: 2D digital imaging was performed of the chest. Two images were obtained. PA and lateral views were obtained. COMPARISON: CR,XR XR CHEST 2V PA LATERAL from 01/11/2021 FINDINGS: MEDIASTINUM: Normal. HEART: Normal. PULMONARY VASCULATURE: Normal. LUNGS: Clear. PLEURAL SPACE: No pleural effusion or pneumothorax. BONE:Within normal limits for the patient's age. OTHER FINDINGS:Normal. IMPRESSION: No acute pulmonary findings. DATA REPOSITORY: RADIATION DOSE DELIVERED:
== END 2024-08-20 14:35 ==
LOC: DI 14:16
PROVIDERS: PCP Family Medicine; Visit Provider Nurse Practitioner Family
DX: Z94.0 Kidney transplant status (principal); D84.821 Immunodeficiency due to drugs; Z79.899 Other long term (current) drug therapy; R50.9 Fever, unspecified
CPT/HCPCS: 71046

== ENCOUNTER 2024-11-18 18:30 | Outpatient (REF) | payer MEDICAID, SELFPAY ==
--- NOTE | 2024-11-18 15:15 | PAPFT_PTH ---
PATIENT: Cherrie Miles LOC: [facility]#:[id number] AGE/SX: 64/F ROOM: RE11/18/[address]: Evelia Ramos : 1960 BED: DIS: 11/18/2024 SPEC #: [id number] RECD: 11/19/24 12:54 STATUS: ANN REQ #: [id number] SILAS: 11/18/24 15:[address]: Evelia Ramos DEPT: [facility] Cytology RECD BY: Queenie Beatty Tissues: 1 - CX/ENDOCX FOR PAP SMEARS Procedures: PAP THIN PREP/UVM Screening HPV DNA PROBE Comments: [id number] (HPV 16 & 18/45)
== END 2024-11-18 18:31 | disposition home or self-care (01) ==
LOC: NCHCN 18:30
PROVIDERS: PCP Family Medicine; Visit Provider Family Medicine
DX: Z01.419 Encounter for gynecological examination (general) (routine) without abnormal findings (principal); Z12.4 Encounter for screening for malignant neoplasm of cervix
CPT/HCPCS: 88142; 87624

== ENCOUNTER 2025-03-25 07:12 | Outpatient (CLI) | payer MEDICAID, SELFPAY ==
--- NOTE | 2025-03-25 | DI.MAMMO_ITS ---
Exam(s) MAMMO SCREENING EXAM: MAMMO SCREENING CLINICAL HISTORY: SCREENING MAMMO Z12.31 TECHNIQUE: Mammograms were interpreted according to the usual protocol including computer analysis with CAD system, tomosynthesis and C-view imaging. COMPARISON: 2017 through 2023 FINDINGS: The breasts are composed of scattered fibroglandular densities, Breast Density category B. No suspicious masses or suspicious microcalcifications are seen. No skin thickening or abnormal axillary lymph nodes are seen. There has been no significant change from prior exams. IMPRESSION: BI-RADS Category 1, Negative mammogram Yearly screening mammography is recommended. Breast Density - Category B - There are scattered areas of fibroglandular density. Breast density Category C or D implies that the patient has dense breast tissue. Dense breast tissue can make it harder to find cancer on a mammogram. Dense breast tissue is also associated with an increased risk of breast cancer. This information about the result of the mammogram report was provided to the patient to raise their awareness. Use this report when you speak with the patient about their risks for breast cancer, which includes their family history. At that time, you may recommend additional screening tests (Ultrasound or MRI) as these tests may add significant information. A negative radiographic report should not delay biopsy if a dominant or clinically suspicious mass is present. Up to ten percent of cancers are not identified on mammography. A negative report may reinforce clinical impression. Adenosis and dense breasts may obscure an underlying neoplasm. False positive reports average 6 to 10%. Patient will receive a letter notifying them of these results.
== END 2025-03-25 07:32 ==
LOC: DI 07:13
PROVIDERS: PCP Family Medicine; Visit Provider Family Medicine
DX: Z12.31 Encounter for screening mammogram for malignant neoplasm of breast (principal); R92.323 Mammographic fibroglandular density, bilateral breasts
CPT/HCPCS: 77063; 77067

== ENCOUNTER 2025-04-04 08:21 | Day surgery (SDC) | payer MEDICAID, SELFPAY ==
--- NOTE | 2025-04-03 16:13 | PDOC.DSDIS_ITS ---
Date of service: 04/04/25 Discharge Plan Disposition Patient Disposition: Home Condition: Good Discharge Details Reason For Visit: Screening colonoscopy Attending Provider: Lauri Spain Primary Care Provider: Evelia Ramos Home Meds and New Rx's Prescriptions: Continued acetaminophen [Tylenol] 325 mg capsule 650 mg PO ONCE PRN mycophenolate mofetil [CellCept] 250 mg capsule 250 mg PO DIRECTED Patient Comments: 1 in am 2 in PM Rx Instructions: 2 in am. 1 in pm. prednisone 10 mg tablet 10 mg PO DAILY pantoprazole 40 mg tablet,delayed release (DR/EC) 40 mg PO DAILY albuterol sulfate 90 mcg/actuation HFA aerosol inhaler 2 puff inhalation Q6H PRN budesonide 0.5 mg/2 mL suspension for nebulization 0.5 mg inhalation DAILY losartan 50 MG tablet 50 mg PO HS calcitriol 0.5 MCG capsule 0.5 mcg PO DAILY Patient Comments: three times a week magnesium gluconate 500 MG tablet 500 mg PO BID tacrolimus [Prograf] 1 mg capsule 2 mg PO Q12H triamcinolone acetonide 0.1 % cream 1 applic TOPICAL BID PRN Patient Comments: Apply a small amount to affected area twice a day Discontinued bisacodyl [Dulcolax (bisacodyl)] 5 mg tablet,delayed release (DR/EC) 5 mg PO ONCE Qty: 4 0RF Rx Instructions: take per colonoscopy instructions polyethylene glycol 3350 17 gram/dose powder 238 g PO ONCE Qty: 238 0RF Rx Instructions: take per colonoscopy instructions Discharge Instructions Additional Instructions: Cherrie, it was good to see you today, and I hope you are comfortable through t he procedure. Everything went very smoothly. I did not see any polyps today. Incidentally, however, you do have some diverticulosis. Diverticula are weak spots in the muscular layer of the colon wall. These cause little pockets or pouches to form. This pockets are known as diverticula, and the condition of having them is called diverticulosis. If they become infected or inflamed, then we refer to with as diverticulitis. Hopefully, years never give you any trouble. I will attach some basic information here about typical approaches to diverticular disease. Also incidentally, there is some tissue just around the top part of your anus that has some features consistent with something called anal intraepithelial neoplasia, or AIN. AIN in and of itself is not particularly dangerous. However, it is thought to be a precursor of anal cancers. So in order to be safe, I did some biopsies of this today. That may result in a little bit of pain around your anus. Tylenol and ibuprofen will be helpful if you find it uncomfortable. Soaking her backside in some warm water mixed with Epsom salts or baking soda (typically referred to as a sitz bath) can also provide some relief. Topical treatments with things like Preparation H or Tucks pads can also provide some relief if you develop discomfort. The biopsy results will take about a week or 2 to get back, and once I have that info rmation I will be in touch. If you need anything in the meantime, please do not hesitate to ask. 1. If tolerated, consume a soft, low fiber diet for 1-2 days. 2[address] Do not drive, drink alcohol, operate machinery, make critical decisions, or do activities that require coordination or balance for 24 hours. 3. Because air was put into your colon during the procedure, expelling air from your rectum (passing gas or farting) is normal. 4. You may not have a bowel movement for 1-3 days because of the colonoscopy prep. This is normal. 5. Go directly to the emergency room if you notice any of the following: Develop chills (warm to touch), or if you have a thermometer and your temperature is above 101 Difficulty breathing or difficultly swallowing Persistent vomiting Severe abdominal pain, other than gas cramps Severe chest pain Black, tarry stools Any bleeding ? exceeding one tablespoon 6. Call your physician if the site where your intravenous was started becomes red, swollen, painful, and warm to touch. 7. Your physician has reviewed your pre-procedure medications. Please continue to take those medications as previously ordered. You will be given specific information/education regarding any changes to your medications before leaving. Stand Alone Forms: Anesthesia Discharge InstSonam, Carlos Alberto Clark (DSU) Activity:: Activity as Tolerated Diet:: As Tolerated Discharge Orders Discharge Orders: Discharge Order (Routine); Ordered 04/03/25 Ordered By: Lauri Spain DS: Diagnosis Discharge Diagnosis (1) Encounter for screening colonoscopy: Status: Acute Asessment and Plan: Follow-up on biopsy results
--- NOTE | 2025-04-03 16:15 | COLE_ITS ---
Date of service: 04/04/25 Time of Service: 10:38 Colonoscopy Report Date of procedure: 04/04/25 Pre-op diagnosis general: Screening colonoscopy Post-op diagnosis procedure note: other (Diverticulosis) Procedure: Colonoscopy with biopsy Surgeon: Lauri Spain Anesthesia Type: General:No Airway Estimated blood loss (mL): 10 Pathology: other (Anal column) Complications: None Disposition: same day Indications: Cherrie is a 64-year-old woman who needs her next screening colonoscopy Prep: Miralax/Dulcolax Procedure Start Time: 10:12 Procedure End Time: 10:26 Retraction Time: 6 Findings: Hypertrophied anal canal tissue; diverticulosis Procedure Description: After the induction of anesthesia, and with Cherrie in left lateral decubitus position, I began by performing an external anorectal exam.? Perineum and skin were normal, as was the anal verge.? Next, I performed a digital rectal exam.? There is some firm tissue at the top portion of the anal column. Next, I advanced a colonoscope into the rectal vault.? I performed retroflexion.? Narrowband imaging was used to assist with the analysis. There was some hypertrophied tissue that I thought might represent anal intraepithelial neoplasia. Cold forceps biopsies were performed of this. There was minimal bleeding. The remainder of the distal rectal vault was normal. Using irrigation, I then advanced the colonoscope beyond the rectal folds and into the sigmoid colon before advancing towards the cecum.? There is sigmoid diverticulosis. The scope was noted to be in the cecum by identification of the ileocecal valve and appendiceal orifice.? I then began withdrawing the colonoscope using repeated irrigation as necessary for full evaluation of the colonic mucosa. ?Once the scope was withdrawn to the level of the rectum, great care was taken to examine portions of the rectal folds.? Finally, the scope was withdrawn and the patient was brought to the same-day surgery recovery unit as the anesthetic wore off. ?The findings and instructions were shared with the p atient prior to discharge. [place] Bowel Prep [place] Bowel Prep Right Colon: 3 Left Colon: 3 Transverse Colon: 3 Total Score: 9
[2025-04-04 08:30] VITALS: BP 105/65; PULSE 78; RESP 18; TEMP 36.5; O2SAT 98
[2025-04-04] MEDS: Lactated Ringers 1,000 ML 80 ML IV (08:54)
--- NOTE | 2025-04-04 09:27 | W.ANESPRE ---
General Info Date of Service Date Performed: 04/04/25 Height: 5 ft 2 in Weight: 92.7 kg Body Mass Index (BMI): 37.3 Surgical Procedure: Operation Date: 04/04/25 10:05 Proposed Procedure Side Surgeon yousif Spain MD Meds Allergies and Home Medications Allergies Allergy/AdvReac Type Severity Reaction Status Date / Time Sulfa (Sulfonamide Allergy Severe Hives Unverified 04/04/25 08:40 Antibiotics) ciprofloxacin AdvReac Intermediate nausea Verified 04/04/25 08:40 levofloxacin (From Levaquin) AdvReac Intermediate impact on Verified 04/04/25 08:40 kidneys Home Medication ?Medication ?Instructions ?Recorded losartan 50 mg tablet 50 mg PO HS 10/23/14 calcitriol 0.5 mcg capsule 0.5 mcg PO DAILY 11/24/17 magnesium gluconate 27 mg 500 mg PO BID 11/24/17 magnesium (500 mg) tablet acetaminophen 325 mg capsule 650 mg PO ONCE PRN 06/08/21 (Tylenol) mycophenolate mofetil 250 mg 250 mg PO DIRECTED 06/08/21 capsule (CellCept) pantoprazole 40 mg tablet,delayed 40 mg PO DAILY 06/10/21 release prednisone 10 mg tablet 10 mg PO DAILY 06/10/21 triamcinolone acetonide 0.1 % 1 applic topical BID PRN 11/29/22 topical cream albuterol sulfate 90 mcg/actuation 2 puff inhalation Q6H PRN 12/18/24 aerosol inhaler budesonide 0.5 mg/2 mL suspension 0.5 mg inhalation DAILY 12/18/24 for nebulization tacrolimus 1 mg capsule, 2 mg PO Q12H 03/20/25 immediate-release (Prograf) Current Visit Medications: Current Medications Generic Name Dose Route Start Last Admin Trade Name Freq PRN Reason Stop Dose Admin Ringer's Solution 1,000 mls @ 80 mls/hr 04/04/25 06:00 04/04/25 08:54 IV 04/04/25 23:59 80 mls/hr INFUSION ANGELO Administration IV Miscellaneous Supplies 1 each 04/04/25 06:00 Iv Access IV 04/04/25 23:59 DIRECTED ANGELO Sodium Chloride 0 ml 04/04/25 06:00 Normal Saline Flush 10 Ml Syr IV 04/04/25 23:59 PRN PRN Sodium Chloride 0 ml 04/04/25 06:00 Normal Saline 10 Ml Vial IJ 04/04/25 23:59 DIRECTED PRN Sterile Water 0 ml 04/04/25 06:00 Water,Injection,Sterile 10 Ml Vial IJ 04/04/25 23:59 DIRECTED PRN PFSH Active Problems Active Problems: Problem Status Onset Code Encounter for screening colonoscopy Acute Z12.11 Essential hypertension Acute I10 GERD (gastroesophageal reflux disease) Chronic K21.9 Skin lesion Acute L98.9 Obesity Chronic E66.9 History of immunosuppressive therapy Acute Z92.25 History of adenomatous polyp of colon Acute Z86.010 Screening for colon cancer Acute Z12.11 Steroid dependence Acute F19.20 Kidney transplant recipient Acute Z94.0 Medical History Medical History Plantar fasciitis, left Shingles Glomerulonephritis Fatigue Snoring Light-headedness Chronic sinusitis 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 moving towards renal transplant Surgical History Surgical History History of colonoscopy (~10/2014) Transplanted kidney Tobacco Smoking/Tobacco Use Status: Former Tobacco Use Alcohol Alcohol Intake: former Substance Use Substance use: Never Substance use type: does not use Vital Signs and Lab Results Vital Signs Most Recent Vital Signs in EMR: Most Recent Vital Signs Temp Pulse Resp BP Pulse Ox 36.5 C 78 18 105/65 98 04/04/25 08:30 04/04/25 08:30 04/04/25 08:30 04/04/25 08:30 04/04/25 08:30 Anesthesia Assessment and Plan Anesthesia History Personal History: No History of Anesthesia Complications Family History: No Family History of Anesthesia Complications Exercise Tolerance Exercise Tolerance: Metabolic Equivalents>4 Cardiac & Pulmonary Exam Cardiac Exam: Normal S1/S2 Heart Sounds Pulmonary Exam: Clear Bilateral Breath Sounds Implantable Cardiac Device Does patient have a Pacemaker or an ICD?: No Airway Exam Known Difficult Airway: No Mallampati Class: 1 Mouth Opening: Normal (> 3cm) Thyromental Distance: Less than 3 cm Neck Range of Motion: Limited ROM Neck Circumference: Thick Teeth Condition: Normal Dentition ASA Classification ASA Score: ASA 3 Emergency Case?: No NPO Status NPO Status: NPO Clears >2 hours, Solids >8 hours Anesthesia Plan Resuscitation Status: Full Code Anesthesia Technique: General Anesthesia Airway Planned: Natural Airway Monitors Used: Standard Monitors Preoperative Comments:: 64 yo for colo. Sig PMHx: HTN (losartan), congestion/chronic sinusitis (budesonide, albuterol), RACHEL, GERD (pantoprazole. well controlled), s/p kidney transplant (due to goodpastures, tacrolimus, prednisone, CellCept. last GFR in [email or web address]. followed at [facility] [place]), epistaxis ECG: sinus, LAD. Stress ECHO: no ischemic stress. LVEF 58%, trace MR. Previous Anes: - kidney, easy mask with OPA, mac 3 grade 1, no issues.
[2025-04-04 09:31] VITALS: BMI 37.3
--- NOTE | 2025-04-04 10:14 | BOWEL_PTH ---
PATIENT: Cherrie Miles LOC: [facility] U#:[id number] AGE/SX: 64/F ROOM: RE04/04/[address]: Lauri Spain MD : 1960 BED: DIS: 04/04/2025 SPEC #: [id number] RECD: 04/04/25 12:37 STATUS: ANN REQ #: [id number] SILAS: 04/04/25 10:[address]: Lauri Spain DEPT: Surgical Specimen RECD BY: Queenie Beatty ENTERED: 04/04/25 12:38 SP TYPE: Bowel OTHR DR: Evelia Ramos Tissues: 1 - BIOPSY BOWEL Procedures: GROSS AND MICRO LEVEL 4 Comments: [id number]
[2025-04-04 10:32] VITALS: BP 91/54; PULSE 63; RESP 17; TEMP 36.1; O2SAT 97
--- NOTE | 2025-04-04 10:39 | W.ANESPOSTOP ---
Postoperative Evaluation Date, Time and Location Date Performed: 04/04/25 Time Performed: 10:39 Patient Location: Day Surgery Unit Vital Signs Most Recent Imported Vital Signs: Most Recent Vital Signs Temp Pulse Resp BP Pulse Ox 36.1 C L 63 17 91/54 L 97 04/04/25 10:32 04/04/25 10:32 04/04/25 10:32 04/04/25 10:32 04/04/25 10:32 Pain Score Most Recent Pain Score: Most Recent Pain Score Pain Level 0 04/04/25 10:32 Assessment Mental Status: Awake (Alert & Oriented to Patient Baseline) Airway and Respiratory Function: Patent airway with normal (patient baseline) respiratory exam Cardiovascular Function: Hemodynamically Stable Hydration Status: Adequately Hydrated Nausea & Vomiting: No Nausea or Vomiting Pain: Pt. Denies Any Pain Peripheral Nerve Block: Patient did not receive a nerve block
[2025-04-04 10:57] VITALS: BP 110/81; PULSE 62; RESP 16; TEMP 36.5; O2SAT 97
== END 2025-04-04 11:15 | disposition home or self-care (01) ==
LOC: SUR 08:21
PROVIDERS: PCP Family Medicine; Visit Provider Surgery
PROC: 0DJD8ZZ Inspection of Lower Intestinal Tract, Via Natural or Artificial Opening Endoscopic (ICD-10-PCS; CPT 45378; principal; 2025-04-04 10:00)
DX: Z12.11 Encounter for screening for malignant neoplasm of colon (principal); I10 Essential (primary) hypertension; G47.33 Obstructive sleep apnea (adult) (pediatric); K21.9 Gastro-esophageal reflux disease without esophagitis; K57.30 Diverticulosis of large intestine without perforation or abscess without bleeding; A63.0 Anogenital (venereal) warts
CPT/HCPCS: 45380; 88305; J2003; J2704

== ENCOUNTER 2025-04-27 14:16 | Emergency (ER) | payer MEDICAID, SELFPAY ==
[2025-04-27 14:18] VITALS: BP 131/73; PULSE 65; RESP 18; TEMP 36.4; O2SAT 99
[2025-04-27] MEDS: Lidocaine/Epinephri/Tetracaine Topical Gel 3 ML TP (14:35)
--- NOTE | 2025-04-27 15:05 | W.ED.GENAD ---
Discharge Plan Disposition Patient Disposition: Home Condition: Good Discharge Details Clinical Impression: Laceration of skin of lower leg Primary Care Provider: Evelia Ramos ED Provider: Skye Duff Home Meds and New Rx's Prescriptions: New cephalexin 500 mg capsule 500 mg PO QID 3 Days Qty: 12 0RF No Action acetaminophen [Tylenol] 325 mg capsule 650 mg PO ONCE PRN mycophenolate mofetil [CellCept] 250 mg capsule 250 mg PO DIRECTED Patient Comments: 1 in am 2 in PM Rx Instructions: 2 in am. 1 in pm. prednisone 10 mg tablet 10 mg PO DAILY pantoprazole 40 mg tablet,delayed release (DR/EC) 40 mg PO DAILY albuterol sulfate 90 mcg/actuation HFA aerosol inhaler 2 puff inhalation Q6H PRN budesonide 0.5 mg/2 mL suspension for nebulization 0.5 mg inhalation DAILY losartan 50 MG tablet 50 mg PO HS calcitriol 0.5 MCG capsule 0.5 mcg PO DAILY Patient Comments: three times a week magnesium gluconate 500 MG tablet 500 mg PO BID tacrolimus [Prograf] 1 mg capsule 2 mg PO Q12H triamcinolone acetonide 0.1 % cream 1 applic TOPICAL BID PRN Patient Comments: Apply a small amount to affected area twice a day Discharge Instructions Additional Instructions: Please have your sutures removed in 7 to 10 days. I recommend that you take the cephalexin for the full course as prescribed to help prevent infection. This was dosed according to renal function. Please keep your wound clean and dry. Wash daily antibacterial soap and water. Apply a thin layer bacitracin and triple antibiotic ointment, then cover with nonstick bandage. I recommend that for discomfort you elevate your leg above heart level and apply ice packs as needed. Return to emergency care if you develop signs of infection such as redness, swelling, pus drainage, increasing pain, fever/chills, or if you are very worried and need be rechecked again immediately Referrals: Evelia Ramos MD [Primary Care Provider, Medicine] HPI General Date/Time Provider Initiated Documentation: 04/27/25 14:19. HPI Narrative: Cherrie is a 64-year-old female who presents to the emergency department today for evaluation of a leg laceration. He is accompanied by her Ronen. Sustained injury to her left piper after bumping into stacks of wood for construction at her son's house. Wound did not penetrate clothing, believed to be clean. Heavy bleeding initially, well-controlled with gauze and Ady bandage. Denies distal numbness/tingling, difficulty ambulating, color change to foot. Has allergies to sulfa antibiotics. PMH: Obesity, immunosuppressive therapy (prednisone daily), HTN, status post kidney transplant PAST SURGICAL HISTORY: Kidney transplant Last tetanus booster was in 2022. Related Data Home Medications ?Medication ?Instructions ?Recorded ?Confirmed losartan 50 mg tablet 50 mg PO HS 10/23/14 04/27/25 calcitriol 0.5 mcg capsule 0.5 mcg PO DAILY 11/24/17 04/27/25 magnesium gluconate 27 mg 500 mg PO BID 11/24/17 04/27/25 magnesium (500 mg) tablet acetaminophen 325 mg capsule 650 mg PO ONCE PRN 06/08/21 04/27/25 (Tylenol) mycophenolate mofetil 250 mg 250 mg PO DIRECTED 06/08/21 04/27/25 capsule (CellCept) pantoprazole 40 mg tablet,delayed 40 mg PO DAILY 06/10/21 04/27/25 release prednisone 10 mg tablet 10 mg PO DAILY 06/10/21 04/27/25 triamcinolone acetonide 0.1 % 1 applic topical BID PRN 11/29/22 04/27/25 topical cream albuterol sulfate 90 mcg/actuation 2 puff inhalation Q6H PRN 12/18/24 04/27/25 aerosol inhaler budesonide 0.5 mg/2 mL suspension 0.5 mg inhalation DAILY 12/18/24 04/27/25 for nebulization tacrolimus 1 mg capsule, 2 mg PO Q12H 03/20/25 04/27/25 immediate-release (Prograf) cephalexin 500 mg capsule 500 mg PO QID 3 days #12 caps 04/27/25 Previous Rx's ?Medication ?Instructions ?Recorded cephalexin 500 mg capsule 500 mg PO QID 3 days #12 caps 04/27/25 Allergies Allergy/AdvReac Type Severity Reaction Status Date / Time Sulfa (Sulfonamide Allergy Severe Hives Unverified 04/27/25 14:31 Antibiotics) ciprofloxacin AdvReac Intermediate nausea Verified 04/27/25 14:31 levofloxacin (From Levaquin) AdvReac Intermediate impact on Verified 04/27/25 14:31 kidneys General Stated Complaint: Laceration DIRK: 3 Exam Narrative Exam Narrative: General Appearance: Normal. Vital signs: Within normal limits. Skin: Left leg linear laceration approx 10 cm x 1 cm gaping with subcutaneous tissue visible. No active bleeding, no foreign bodies. Neurological: +CMS to toes. Full painless ROM to foot and ankle. Psychiatric: Normal. Course Vital Signs Vital signs: Vital Signs Temperature 36.4 C L 04/27/25 14:18 Pulse 65 04/27/25 14:18 Respiratory Rate 18 04/27/25 14:18 Blood Pressure 131/73 04/27/25 14:18 Pulse Oximetry 99 04/27/25 14:18 Temperature 36.4 C L 04/27/25 14:18 Temperature Source Oral 04/27/25 14:18 Pulse 65 04/27/25 14:18 Respiratory Rate 18 04/27/25 14:18 Blood Pressure 131/73 04/27/25 14:18 Blood Pressure Position Sitting 04/27/25 14:18 Pulse Oximetry 99 04/27/25 14:18 Oxygen Delivery Method Room Air 04/27/25 14:18 Oxygen Flow Rate 0 04/27/25 14:18 Pain Level 2 04/27/25 14:18 Procedure Laceration Laceration 1: Date of Procedure: 04/27/25 Provider that performed the procedure: Skye Morin Patient Consented: Verbally Site: lower extremity Side (If applicable): left Description: linear Depth: simple, single layer Local anesthetic: Lidocaine 2%, with Epi and LET(lidocaine epinephrine tetracaine) Amount of anesthesia used (mL): 5 Pre-repair:: wound explored, irrigated extensively and deep structures intact Skin layer closed with: nylon Suture size: 4-0 Number of sutures:: 13 Technique: horizontal mattress and simple, interrupted Procedure Description/Note: Patient tolerated procedure well, scant oozing from wound. Dressing placed by RN Medical Decision Making Initial Assessment: 64-year-old female with left leg laceration. No red flags concerning for neurovascular compromise, vascular injury, foreign bodies retained, or extension into joint space/bone. ED Course: - Let applied for numbing and vasoconstriction. - Wound cleaned and prepared with chlorhexidine - 5 cc 2% lidocaine with epinephrine injected for local anesthetic - 13 sutures placed with 4-0 Ethilon through Steri-Strips for skin reinforcement with good approximation of edges - Prophylactic antibiotics with cephalexin given, patient's creatinine clearance calculated to be 30, no renal dosing adjustment needed. Final Assessment: Left leg laceration with suture repair Clinical Impression: - Left leg laceration Reviewed discharge instruction with patient, including wound care, suture removal, prophylactic antibiotics, and red flags indicating need for return to emergency care. She voices agreement with plan of care Patient consented to the use of MAHESH PFSH All Active Problems (Updated 04/07/25 @ 08:21 by Nya Chong) Laceration of skin of lower leg (Acute) Essential hypertension (Acute) GERD (gastroesophageal reflux disease) (Chronic) Skin lesion (Acute) Obesity (Chronic) History of immunosuppressive therapy (Acute) History of adenomatous polyp of colon (Acute) Screening for colon cancer (Acute) Steroid dependence (Acute) Kidney transplant recipient (Acute) Medical History (Updated 04/27/25 @ 16:40 by Skye Morin) Plantar fasciitis, left Shingles Glomerulonephritis Fatigue Snoring Light-headedness Chronic sinusitis 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 moving towards renal transplant Surgical History (Updated 04/07/25 @ 08:21 by Nya Chong) History of colonoscopy (~04/04/25) Transplanted kidney Family History Mother Personal history of malignant neoplasm ovarian CA Social History Smoking/Tobacco Use Status: Former Tobacco Use Smoking risk assessment performed?: Yes Alcohol Intake: former Drug use: Never Substance use type: does not use Housing: house Do you feel safe at home: Yes Do you feel safe in your relationship?: Yes
[2025-04-27] MEDS: Lidocaine 2% Multi-Dose W/EPI 1/100,000 20 ML VIAL IJ (16:05)
[2025-04-27] MEDS: Cephalexin 500 MG CAP, 4 CAPS/BTL PO (16:05)
== END 2025-04-27 22:11 | disposition home or self-care (01) ==
PROVIDERS: Emergency Provider Nurse Practitioner Family; PCP Family Medicine
DX: S81.812A Laceration without foreign body, left lower leg, initial encounter (principal); W22.8XXA Striking against or struck by other objects, initial encounter; Z94.0 Kidney transplant status
CPT/HCPCS: 12004; J2004